=== PATIENT | male | born 1950 | race Caucasian/White ===

== ENCOUNTER → 2019-03-08 09:58 | Outpatient (CLI) | payer MEDICARE, OTHER, SELFPAY ==
[2019-03-08 10:47] LABS: 585 Gram Check PASS; Amount Collected in g 585 GRAM; Dizziness NO; Postdiastolic BP 75; Postsystolic BP 130; Prediastolic 77; Presystolic 153; Pulse 71; Site of phlebotomy LEFT AC; Swelling NO; Therapeutic Phleb Comment NO COMMENT; Zero Check Sebra Scale PASS
[2019-03-08 10:52] LABS: Add Manual Diff / Slide Review NO; Basophils Absolute Auto 100 /uL (0-100); Basophils Percent Auto 1.1 % (0-2); Eosinophils Absolute Auto 600 /uL (0-450); Eosinophils Percent Auto 5.4 % (2-4); Hematocrit 47.9 % (41-53); Hemoglobin 16.2 g/dL (13.5-17.5); Lymphocytes Absolute Auto 2000 /uL (1100-4500); Lymphocytes Percent Auto 17.9 % (25-40); Mean Corpuscular HGB Conc 33.8 % (30-36); Mean Corpuscular Hemoglobin 30.1 PG (26-34); Mean Corpuscular Volume 89.2 fL (80-100); Monocytes Absolute Auto 300 /uL (0-900); Neutrophils Absolute Auto 8000 /uL (1500-7000); Neutrophils Percent Auto 72.6 % (50-75); Platelet Count 364 X10^3/uL (150-400); Red Blood Cell Count 5.37 X10^6/uL (4.5-5.9); Red Cell Distribution Width 17.2 % (11.6-14.8)
[2019-03-08 11:04] LABS: Alanine Aminotransferase 20 IU/L (21-72); Albumin 4.3 g/dL (3.5-5.0); Albumin Globulin Ratio 1.4 (1.0-2.8); Alkaline Phosphatase 71 U/L (38-126); Aspartate Aminotransferase 37 IU/L (17-59); BUN Creatinine Ratio 18.9 (6-22); Bilirubin Total 0.9 mg/dL (0.2-1.3); Blood Urea Nitrogen 17 mg/dL (9-20); Calcium 9.4 mg/dL (8.4-10.2); Carbon Dioxide 25 mmol/L (22-32); Chloride 102 mmol/L (98-107); Estimated Glomerular Filt Rate > 60.0 mL/min (>60); Globulin 3.1 g/dL (1.7-4.1); Glucose 103 mg/dL (80-110); Lactate Dehydrogenase 684 U/L (313-618); Potassium 4.5 mmol/L (3.4-5.1); Sodium 138 mmol/L (137-145); Total Protein 7.4 g/dL (6.3-8.2); Uric Acid 8.1 mg/dL (3.5-8.5)
[2019-03-08 11:06] LABS: HEMOLYSIS 51 (0-50)
== END ==
PROVIDERS: Family Provider Family Medicine; PCP Family Medicine; Visit Provider Internal Medicine
DX: D45 Polycythemia vera (principal)
CPT/HCPCS: 80053; 83615; 84550; 85025; 99195

== ENCOUNTER → 2019-03-29 09:58 | Outpatient (CLI) | payer MEDICARE, OTHER, SELFPAY ==
[2019-03-29 10:28] LABS: Add Manual Diff / Slide Review NO; Basophils Absolute Auto 100 /uL (0-100); Basophils Percent Auto 0.8 % (0-2); Eosinophils Absolute Auto 600 /uL (0-450); Eosinophils Percent Auto 5.3 % (2-4); Hemoglobin 16.6 g/dL (13.5-17.5); Lymphocytes Absolute Auto 1900 /uL (1100-4500); Lymphocytes Percent Auto 18.1 % (25-40); Mean Corpuscular HGB Conc 33.2 % (30-36); Mean Corpuscular Hemoglobin 29.6 PG (26-34); Mean Corpuscular Volume 89.2 fL (80-100); Monocytes Absolute Auto 300 /uL (0-900); Neutrophils Absolute Auto 7700 /uL (1500-7000); Neutrophils Percent Auto 72.8 % (50-75); Platelet Count 306 X10^3/uL (150-400); Red Blood Cell Count 5.61 X10^6/uL (4.5-5.9); Red Cell Distribution Width 16.5 % (11.6-14.8); White Blood Cell Count 10.6 X10^3/uL (4.5-11.0)
[2019-03-29 11:05] LABS: 585 Gram Check PASS; Prediastolic 81; Presystolic 159; Pulse 60; Zero Check Sebra Scale PASS
[2019-03-29 11:06] LABS: Dizziness NO; Postdiastolic BP 81; Postsystolic BP 141; Site of phlebotomy RAC; Swelling NO; Therapeutic Phleb Comment NO COMMENT
[2019-03-29 11:41] LABS: Alanine Aminotransferase 19 IU/L (21-72); Albumin 4.4 g/dL (3.5-5.0); Albumin Globulin Ratio 1.5 (1.0-2.8); Alkaline Phosphatase 82 U/L (38-126); Aspartate Aminotransferase 28 IU/L (17-59); BUN Creatinine Ratio 18.9 (6-22); Bilirubin Total 0.6 mg/dL (0.2-1.3); Blood Urea Nitrogen 17 mg/dL (9-20); Calcium 9.5 mg/dL (8.4-10.2); Carbon Dioxide 28 mmol/L (22-32); Chloride 101 mmol/L (98-107); Estimated Glomerular Filt Rate > 60.0 mL/min (>60); Globulin 2.9 g/dL (1.7-4.1); Glucose 93 mg/dL (80-110); HEMOLYSIS 21 (0-50); Lactate Dehydrogenase 557 U/L (313-618); Potassium 4.2 mmol/L (3.4-5.1); Sodium 138 mmol/L (137-145); Total Protein 7.3 g/dL (6.3-8.2); Uric Acid 7.6 mg/dL (3.5-8.5)
[2019-03-29 12:34] LABS: Add Manual Diff / Slide Review NO; Basophils Absolute Auto 100 /uL (0-100); Basophils Percent Auto 1.3 % (0-2); Eosinophils Absolute Auto 500 /uL (0-450); Hematocrit 47.6 % (41-53); Hemoglobin 15.7 g/dL (13.5-17.5); Lymphocytes Absolute Auto 2100 /uL (1100-4500); Lymphocytes Percent Auto 19.2 % (25-40); Mean Corpuscular Hemoglobin 29.4 PG (26-34); Mean Corpuscular Volume 89.2 fL (80-100); Monocytes Absolute Auto 400 /uL (0-900); Monocytes Percent Auto 3.7 % (3-14); Neutrophils Absolute Auto 7600 /uL (1500-7000); Neutrophils Percent Auto 70.8 % (50-75); Platelet Count 302 X10^3/uL (150-400); Red Blood Cell Count 5.33 X10^6/uL (4.5-5.9); Red Cell Distribution Width 16.3 % (11.6-14.8); White Blood Cell Count 10.7 X10^3/uL (4.5-11.0)
== END ==
PROVIDERS: Family Provider Family Medicine; PCP Family Medicine; Visit Provider Pathology Hematology
DX: D45 Polycythemia vera (principal)
CPT/HCPCS: 80053; 83615; 84550; 85025; 99195

== ENCOUNTER → 2019-04-06 11:56 | Outpatient (CLI) | payer MEDICARE, OTHER, SELFPAY ==
[2019-04-06 12:14] LABS: Hematocrit 44.2 % (41-53); Hemoglobin 14.7 g/dL (13.5-17.5)
== END ==
PROVIDERS: Family Provider Family Medicine; PCP Family Medicine; Visit Provider Internal Medicine
DX: D45 Polycythemia vera (principal)
CPT/HCPCS: 36415; 85014; 85018

== ENCOUNTER → 2019-04-20 12:05 | Outpatient (CLI) | payer MEDICARE, OTHER, SELFPAY ==
[2019-04-20 12:44] LABS: 585 Gram Check PASS; Amount Collected in g 585 GRAM; Dizziness NO; Postdiastolic BP 77; Postsystolic BP 136; Prediastolic 80; Presystolic 130; Pulse 70; Site of phlebotomy LAC; Swelling NO; Therapeutic Phleb Comment NO COMMENT; Zero Check Sebra Scale PASS
[2019-04-20 13:48] LABS: Add Manual Diff / Slide Review NO; Basophils Absolute Auto 100 /uL (0-100); Basophils Percent Auto 1.1 % (0-2); Eosinophils Absolute Auto 600 /uL (0-450); Eosinophils Percent Auto 4.7 % (2-4); Hematocrit 44.7 % (41-53); Hemoglobin 14.8 g/dL (13.5-17.5); Lymphocytes Absolute Auto 2500 /uL (1100-4500); Mean Corpuscular HGB Conc 33.1 % (30-36); Mean Corpuscular Hemoglobin 28.6 PG (26-34); Mean Corpuscular Volume 86.6 fL (80-100); Monocytes Absolute Auto 400 /uL (0-900); Monocytes Percent Auto 3.1 % (3-14); Neutrophils Absolute Auto 9000 /uL (1500-7000); Neutrophils Percent Auto 71.1 % (50-75); Platelet Count 448 X10^3/uL (150-400); Red Blood Cell Count 5.17 X10^6/uL (4.5-5.9); White Blood Cell Count 12.6 X10^3/uL (4.5-11.0)
[2019-04-20 14:52] LABS: Uric Acid 7.8 mg/dL (3.5-8.5)
== END ==
PROVIDERS: Family Provider Family Medicine; PCP Family Medicine; Visit Provider Internal Medicine
DX: D45 Polycythemia vera (principal)
CPT/HCPCS: 84550; 85025; 99195

== ENCOUNTER → 2019-05-17 11:48 | Outpatient (CLI) | payer MEDICARE, OTHER, SELFPAY ==
[2019-05-17 12:09] LABS: Add Manual Diff / Slide Review NO; Basophils Absolute Auto 100 /uL (0-100); Basophils Percent Auto 1.1 % (0-2); Eosinophils Absolute Auto 500 /uL (0-450); Eosinophils Percent Auto 3.6 % (2-4); Hematocrit 45.6 % (41-53); Hemoglobin 14.8 g/dL (13.5-17.5); Lymphocytes Absolute Auto 2000 /uL (1100-4500); Lymphocytes Percent Auto 15.7 % (25-40); Mean Corpuscular HGB Conc 32.5 % (30-36); Mean Corpuscular Hemoglobin 27.1 PG (26-34); Mean Corpuscular Volume 83.5 fL (80-100); Monocytes Absolute Auto 400 /uL (0-900); Monocytes Percent Auto 2.8 % (3-14); Neutrophils Absolute Auto 9900 /uL (1500-7000); Neutrophils Percent Auto 76.8 % (50-75); Platelet Count 356 X10^3/uL (150-400); Red Blood Cell Count 5.47 X10^6/uL (4.5-5.9); Red Cell Distribution Width 16.1 % (11.6-14.8)
== END ==
PROVIDERS: PCP Family Medicine; Visit Provider Internal Medicine
DX: D45 Polycythemia vera (principal)
CPT/HCPCS: 36415; 85025

== ENCOUNTER → 2019-06-14 09:21 | Outpatient (CLI) | payer MEDICARE, OTHER, SELFPAY ==
[2019-06-14 10:47] LABS: 585 Gram Check PASS; Dizziness NO; Postdiastolic BP 80; Postsystolic BP 139; Prediastolic 76; Presystolic 142; Pulse 66; Site of phlebotomy LAC; Swelling NO; Therapeutic Phleb Comment NO COMMENT; Zero Check Sebra Scale PASS
== END ==
PROVIDERS: PCP Family Medicine; Visit Provider Internal Medicine
DX: D45 Polycythemia vera (principal)
CPT/HCPCS: 99195

== ENCOUNTER → 2019-06-30 09:13 | Outpatient (CLI) | payer MEDICARE, OTHER, SELFPAY ==
[2019-06-30 09:32] LABS: Add Manual Diff / Slide Review NO; Basophils Absolute Auto 200 /uL (0-100); Basophils Percent Auto 1.5 % (0-2); Eosinophils Absolute Auto 800 /uL (0-450); Eosinophils Percent Auto 5.8 % (2-4); Hematocrit 46.6 % (41-53); Hemoglobin 14.9 g/dL (13.5-17.5); Lymphocytes Absolute Auto 2200 /uL (1100-4500); Lymphocytes Percent Auto 16.8 % (25-40); Mean Corpuscular HGB Conc 32.1 % (30-36); Mean Corpuscular Volume 77.9 fL (80-100); Monocytes Absolute Auto 700 /uL (0-900); Monocytes Percent Auto 5.1 % (3-14); Neutrophils Absolute Auto 9400 /uL (1500-7000); Neutrophils Percent Auto 70.8 % (50-75); Platelet Count 481 X10^3/uL (150-400); Red Blood Cell Count 5.98 X10^6/uL (4.5-5.9); Red Cell Distribution Width 16.5 % (11.6-14.8); White Blood Cell Count 13.3 X10^3/uL (4.5-11.0)
[2019-06-30 10:31] LABS: 585 Gram Check PASS; Zero Check Sebra Scale PASS
[2019-06-30 10:32] LABS: Dizziness NO; Postdiastolic BP 59; Postsystolic BP 141; Prediastolic 87; Presystolic 154; Pulse 59; Site of phlebotomy LAC; Swelling NO; Therapeutic Phleb Comment NO COMMENT
[2019-06-30 11:06] LABS: Add Manual Diff / Slide Review NO; Basophils Absolute Auto 100 /uL (0-100); Basophils Percent Auto 1.1 % (0-2); Eosinophils Absolute Auto 700 /uL (0-450); Eosinophils Percent Auto 5.8 % (2-4); Hematocrit 45.3 % (41-53); Hemoglobin 14.7 g/dL (13.5-17.5); Lymphocytes Absolute Auto 2100 /uL (1100-4500); Mean Corpuscular HGB Conc 32.4 % (30-36); Mean Corpuscular Hemoglobin 25.3 PG (26-34); Mean Corpuscular Volume 77.9 fL (80-100); Monocytes Absolute Auto 400 /uL (0-900); Monocytes Percent Auto 3.2 % (3-14); Neutrophils Absolute Auto 9000 /uL (1500-7000); Neutrophils Percent Auto 72.9 % (50-75); Platelet Count 483 X10^3/uL (150-400); Red Blood Cell Count 5.81 X10^6/uL (4.5-5.9); Red Cell Distribution Width 16.3 % (11.6-14.8); White Blood Cell Count 12.3 X10^3/uL (4.5-11.0)
== END ==
PROVIDERS: PCP Family Medicine; Visit Provider Pathology Hematology
DX: D45 Polycythemia vera (principal)
CPT/HCPCS: 36415; 85025; 99195

== ENCOUNTER → 2019-09-26 09:12 | Outpatient (CLI) | payer MEDICARE, OTHER, SELFPAY ==
[2019-09-26 09:52] LABS: Add Manual Diff / Slide Review NO; Basophils Absolute Auto 100 /uL (0-100); Basophils Percent Auto 0.9 % (0-2); Eosinophils Absolute Auto 800 /uL (0-450); Eosinophils Percent Auto 6.1 % (2-4); Hematocrit 45.6 % (41-53); Hemoglobin 14.4 g/dL (13.5-17.5); Lymphocytes Absolute Auto 2100 /uL (1100-4500); Lymphocytes Percent Auto 16.1 % (25-40); Mean Corpuscular HGB Conc 31.5 % (30-36); Mean Corpuscular Hemoglobin 21.9 PG (26-34); Monocytes Absolute Auto 500 /uL (0-900); Monocytes Percent Auto 3.6 % (3-14); Neutrophils Absolute Auto 9700 /uL (1500-7000); Neutrophils Percent Auto 73.3 % (50-75); Platelet Count 456 X10^3/uL (150-400); Red Cell Distribution Width 18.4 % (11.6-14.8); White Blood Cell Count 13.2 X10^3/uL (4.5-11.0)
[2019-09-26 09:53] LABS: Mean Corpuscular Volume 69.7 fL (80-100); Red Blood Cell Count 6.55 X10^6/uL (4.5-5.9)
[2019-09-26 10:23] LABS: Microcytosis 1+
[2019-09-26 10:38] LABS: 585 Gram Check PASS; Prediastolic 73; Presystolic 138; Pulse 62; Zero Check Sebra Scale PASS
[2019-09-26 10:39] LABS: Amount Collected in g 585; Dizziness NO; Postdiastolic BP 85; Postsystolic BP 149; Site of phlebotomy LAC; Swelling NO; Therapeutic Phleb Comment NO COMMENT
== END ==
PROVIDERS: PCP Family Medicine; Visit Provider Pathology Hematology
DX: D45 Polycythemia vera (principal)
CPT/HCPCS: 36415; 85025; 99195

== ENCOUNTER → 2019-10-27 09:45 | Outpatient (CLI) | payer MEDICARE, OTHER, SELFPAY ==
[2019-10-27 10:02] LABS: 585 Gram Check PASS; Zero Check Sebra Scale PASS
[2019-10-27 10:31] LABS: Prediastolic 73; Presystolic 151; Pulse 66; Site of phlebotomy LAC
[2019-10-27 10:32] LABS: Dizziness NO; Postdiastolic BP 75; Postsystolic BP 139; Swelling NO; Therapeutic Phleb Comment NO COMMENT
== END ==
PROVIDERS: PCP Family Medicine; Visit Provider Internal Medicine
DX: D45 Polycythemia vera (principal)
CPT/HCPCS: 99195

== ENCOUNTER → 2020-01-12 11:20 | Outpatient (CLI) | payer MEDICARE, OTHER, SELFPAY ==
[2020-01-12 12:01] LABS: 585 Gram Check PASS; Prediastolic 74; Presystolic 150; Pulse 72; Site of phlebotomy RAC; Zero Check Sebra Scale PASS
[2020-01-12 12:02] LABS: Dizziness NO; Postdiastolic BP 72; Postsystolic BP 141; Swelling NO; Therapeutic Phleb Comment NO COMMENT
== END ==
PROVIDERS: PCP Family Medicine; Referring Provider Pathology Hematology; Visit Provider Pathology Hematology
DX: D45 Polycythemia vera (principal)
CPT/HCPCS: 99195

== ENCOUNTER → 2020-04-11 09:33 | Outpatient (CLI) | payer MEDICARE, OTHER, SELFPAY ==
[2020-04-11 10:31] LABS: 585 Gram Check PASS; Pulse 68; Zero Check Sebra Scale PASS
[2020-04-11 10:32] LABS: Dizziness NO; Postdiastolic BP 89; Postsystolic BP 151; Prediastolic 84; Presystolic 158; Site of phlebotomy LAC; Swelling NO; Therapeutic Phleb Comment NO COMMENT
== END ==
PROVIDERS: PCP Family Medicine; Referring Provider Pathology Hematology; Visit Provider Pathology Hematology
DX: D45 Polycythemia vera (principal)
CPT/HCPCS: 99195

== ENCOUNTER → 2020-05-22 09:23 | Outpatient (CLI) | payer MEDICARE, OTHER, SELFPAY ==
[2020-05-22 10:50] LABS: 585 Gram Check PASS; Amount Collected in g 466g; Dizziness NO; Postdiastolic BP 80; Postsystolic BP 149; Prediastolic 81; Presystolic 170; Pulse 63; Site of phlebotomy LAC; Swelling NO; Therapeutic Phleb Comment NO COMMENT; Zero Check Sebra Scale PASS
== END ==
PROVIDERS: PCP Family Medicine; Referring Provider Pathology Hematology; Visit Provider Pathology Hematology
DX: D45 Polycythemia vera (principal)
CPT/HCPCS: 99195

== ENCOUNTER → 2020-06-20 09:30 | Outpatient (CLI) | payer MEDICARE, OTHER, SELFPAY ==
[2020-06-20 10:28] LABS: 585 Gram Check PASS; Dizziness NO; Postdiastolic BP 86; Postsystolic BP 149; Prediastolic 73; Presystolic 164; Pulse 46; Site of phlebotomy RAC; Swelling NO; Therapeutic Phleb Comment NO COMMENT; Zero Check Sebra Scale PASS
== END ==
PROVIDERS: PCP Family Medicine; Referring Provider Pathology Hematology; Visit Provider Pathology Hematology
DX: D45 Polycythemia vera (principal)
CPT/HCPCS: 99195

== ENCOUNTER 2020-07-09 18:54 | Emergency (ER) | payer MEDICARE, OTHER, SELFPAY ==
[2020-07-09 18:59] VITALS: BP 163/77; PULSE 59; RESP 16; TEMP 36.4; O2SAT 98
--- NOTE | 2020-07-09 19:03 | DI.US.S_ITS ---
PROCEDURE: US PERIPH VENOUS LOW EXTREM RT INDICATIONS: rt calf pain/swelling TECHNIQUE: Real-time imaging, as well as color and pulse Doppler interrogation, were performed of the lower extremity deep veins from the inguinal ligament to the popliteal fossa. COMPARISON: None. FINDINGS: The common femoral, femoral and popliteal veins are normally compressible, and free of intraluminal thrombus. Color and pulse Doppler demonstrate normal phasic intraluminal flow. There is normal augmentation response to distal compression maneuver. There is occlusive thrombosis of the lesser saphenous vein extending to the junction to the popliteal vein. No filling defect in the popliteal vein. IMPRESSION: 1. No DVT in the right lower extremity. 2. Occlusive thrombosis of the lesser saphenous vein extending to the junction to popliteal vein. Dictated by: Mary Madsen M.D. on 07/09/2020 at 20:09 Approved by: Mary Madsen M.D. on 07/09/2020 at 20:11
[2020-07-09 20:05] VITALS: BP 189/90; PULSE 52; RESP 14; O2SAT 100
[2020-07-09 20:56] LABS: Add Manual Diff / Slide Review NO; Basophils Absolute Auto 100 /uL (0-100); Eosinophils Absolute Auto 900 /uL (0-450); Eosinophils Percent Auto 6.8 % (2-4); Hematocrit 38.7 % (41-53); Hemoglobin 12.1 g/dL (13.5-17.5); Lymphocytes Absolute Auto 2600 /uL (1100-4500); Lymphocytes Percent Auto 18.7 % (25-40); Mean Corpuscular HGB Conc 31.2 % (30-36); Mean Corpuscular Hemoglobin 20.6 PG (26-34); Mean Corpuscular Volume 66.1 fL (80-100); Monocytes Absolute Auto 600 /uL (0-900); Monocytes Percent Auto 4.4 % (3-14); Neutrophils Absolute Auto 9500 /uL (1500-7000); Neutrophils Percent Auto 69.1 % (50-75); Platelet Count 450 X10^3/uL (150-400); Red Blood Cell Count 5.85 X10^6/uL (4.5-5.9); White Blood Cell Count 13.7 X10^3/uL (4.5-11.0)
[2020-07-09 21:21] LABS: Microcytosis 1+
[2020-07-09 21:23] VITALS: BP 177/86; PULSE 54; RESP 18; O2SAT 97
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
== END 2020-07-09 21:23 | disposition home or self-care (01) ==
PROVIDERS: Emergency Provider Nurse Practitioner Family; PCP Family Medicine
DX: I82.811 Embolism and thrombosis of superficial veins of right lower extremity (principal); D64.9 Anemia, unspecified
CPT/HCPCS: 36415; 85025; 93971; 99283; 99284

== ENCOUNTER → 2020-08-29 09:06 | Outpatient (CLI) | payer MEDICARE, OTHER, SELFPAY ==
[2020-08-29 12:27] LABS: 585 Gram Check PASS; Dizziness NO; Postdiastolic BP 86; Postsystolic BP 157; Prediastolic 81; Presystolic 158; Pulse 78; Site of phlebotomy LAC; Swelling NO; Therapeutic Phleb Comment NO COMMENT; Zero Check Sebra Scale PASS
== END ==
PROVIDERS: PCP Family Medicine; Referring Provider Pathology Hematology; Visit Provider Pathology Hematology
DX: D45 Polycythemia vera (principal)
CPT/HCPCS: 99195

== ENCOUNTER → 2020-10-01 09:44 | Outpatient (CLI) | payer MEDICARE, OTHER, SELFPAY ==
[2020-10-01 10:44] LABS: Add Manual Diff / Slide Review NO; Basophils Absolute Auto 100 /uL (0-100); Basophils Percent Auto 0.9 % (0-2); Eosinophils Absolute Auto 1000 /uL (0-450); Hematocrit 41.9 % (41-53); Hemoglobin 12.8 g/dL (13.5-17.5); Lymphocytes Absolute Auto 2000 /uL (1100-4500); Lymphocytes Percent Auto 12.5 % (25-40); Mean Corpuscular HGB Conc 30.5 % (30-36); Mean Corpuscular Hemoglobin 19.8 PG (26-34); Mean Corpuscular Volume 64.9 fL (80-100); Monocytes Absolute Auto 500 /uL (0-900); Monocytes Percent Auto 2.9 % (3-14); Neutrophils Absolute Auto 12700 /uL (1500-7000); Neutrophils Percent Auto 77.7 % (50-75); Platelet Count 515 X10^3/uL (150-400); Red Blood Cell Count 6.46 X10^6/uL (4.5-5.9); Red Cell Distribution Width 19.8 % (11.6-14.8); White Blood Cell Count 16.4 X10^3/uL (4.5-11.0)
[2020-10-01 12:05] LABS: Anisocytosis 2+; Microcytosis 1+
[2020-10-01 12:06] LABS: Hypochromasia 1+
[2020-10-01 12:07] LABS: Ovalocytes 1+; Poikilocytosis 1+
== END ==
PROVIDERS: PCP Family Medicine; Referring Provider Pathology Hematology; Visit Provider Pathology Hematology
DX: D45 Polycythemia vera (principal)
CPT/HCPCS: 36415; 85025

== ENCOUNTER → 2020-10-01 09:47 | Outpatient (CLI) | payer MEDICARE, OTHER, SELFPAY ==
--- NOTE | 2020-10-01 | DI.US.S_ITS ---
PROCEDURE: US PERIP VENOUS LOW EXTREM RT INDICATIONS: Phlebitis and thrombophlebitis of superficial vess TECHNIQUE: Real-time imaging, as well as color and pulse Doppler interrogation, were performed of the lower extremity deep veins from the inguinal ligament to the popliteal fossa. COMPARISON: [facility], , [facility] VENOUS LOW EXTREM RT, 07/09/2020, 19:38. FINDINGS: The common femoral, femoral and popliteal veins are normally compressible, and free of intraluminal thrombus. Color and pulse Doppler demonstrate normal phasic intraluminal flow. There is normal augmentation response to distal compression maneuver. There is occlusive thrombosis of the right lesser saphenous vein as seen on the last exam. IMPRESSION: 1. No DVT in the right lower extremity. 2. Occlusive thrombosis of the lesser saphenous vein. Dictated by: Mary Madsen M.D. on 10/01/2020 at 11:07 Approved by: Mary Madsen M.D. on 10/01/2020 at 11:09
== END ==
PROVIDERS: PCP Family Medicine; Referring Provider Family Medicine; Visit Provider Family Medicine
DX: I82.811 Embolism and thrombosis of superficial veins of right lower extremity (principal); D45 Polycythemia vera
CPT/HCPCS: 36415; 85025; 93971

== ENCOUNTER → 2020-10-30 09:31 | Outpatient (CLI) | payer MEDICARE, OTHER, SELFPAY ==
[2020-10-31 06:11] LABS: 585 Gram Check PASS; Dizziness NO; Postdiastolic BP 73; Postsystolic BP 146; Prediastolic 77; Presystolic 137; Pulse 62; Site of phlebotomy LAC; Swelling NO; Therapeutic Phleb Comment NO COMMENT; Zero Check Sebra Scale PASS
== END ==
PROVIDERS: PCP Family Medicine; Referring Provider Pathology Hematology; Visit Provider Pathology Hematology
DX: D45 Polycythemia vera (principal)
CPT/HCPCS: 99195

== ENCOUNTER → 2020-12-25 09:13 | Outpatient (CLI) | payer MEDICARE, OTHER, SELFPAY ==
[2020-12-25 10:07] LABS: 585 Gram Check PASS; Dizziness NO; Postdiastolic BP 81; Postsystolic BP 154; Prediastolic 86; Presystolic 156; Pulse 51; Site of phlebotomy RAC; Swelling NO; Therapeutic Phleb Comment NO COMMENT; Zero Check Sebra Scale PASS
== END ==
PROVIDERS: PCP Family Medicine; Referring Provider Pathology Hematology; Visit Provider Pathology Hematology
DX: D45 Polycythemia vera (principal)
CPT/HCPCS: 99195

== ENCOUNTER → 2021-02-20 09:13 | Outpatient (CLI) | payer MEDICARE, OTHER, SELFPAY ==
[2021-02-20 09:43] LABS: Add Manual Diff / Slide Review NO; Basophils Absolute Auto 100 /uL (0-100); Basophils Percent Auto 0.7 % (0-2); Eosinophils Absolute Auto 1000 /uL (0-450); Eosinophils Percent Auto 6.5 % (2-4); Hematocrit 41.3 % (41-53); Hemoglobin 12.6 g/dL (13.5-17.5); Lymphocytes Absolute Auto 2000 /uL (1100-4500); Lymphocytes Percent Auto 12.4 % (25-40); Mean Corpuscular HGB Conc 30.5 % (30-36); Mean Corpuscular Hemoglobin 19.9 PG (26-34); Mean Corpuscular Volume 65.2 fL (80-100); Monocytes Absolute Auto 700 /uL (0-900); Monocytes Percent Auto 4.2 % (3-14); Neutrophils Absolute Auto 12200 /uL (1500-7000); Neutrophils Percent Auto 76.2 % (50-75); Platelet Count 503 X10^3/uL (150-400); Red Blood Cell Count 6.34 X10^6/uL (4.5-5.9); Red Cell Distribution Width 20.2 % (11.6-14.8)
[2021-02-20 10:14] LABS: Anisocytosis 2+; Hypochromasia 1+; Microcytosis 2+; Polychromasia 1+
== END ==
PROVIDERS: PCP Family Medicine; Referring Provider Pathology Hematology; Visit Provider Pathology Hematology
DX: D45 Polycythemia vera (principal)
CPT/HCPCS: 36415; 85025

== ENCOUNTER → 2021-04-17 09:23 | Outpatient (CLI) | payer MEDICARE, OTHER, SELFPAY ==
[2021-04-17 09:57] LABS: Add Manual Diff / Slide Review NO; Basophils Absolute Auto 100 /uL (0-100); Basophils Percent Auto 0.8 % (0-2); Eosinophils Absolute Auto 800 /uL (0-450); Eosinophils Percent Auto 4.8 % (2-4); Hematocrit 45.1 % (41-53); Hemoglobin 13.9 g/dL (13.5-17.5); Lymphocytes Absolute Auto 1800 /uL (1100-4500); Lymphocytes Percent Auto 10.6 % (25-40); Mean Corpuscular HGB Conc 30.9 % (30-36); Mean Corpuscular Hemoglobin 20.5 PG (26-34); Mean Corpuscular Volume 66.2 fL (80-100); Monocytes Absolute Auto 700 /uL (0-900); Monocytes Percent Auto 4.2 % (3-14); Neutrophils Absolute Auto 13600 /uL (1500-7000); Neutrophils Percent Auto 79.6 % (50-75); Platelet Count 490 X10^3/uL (150-400); Red Blood Cell Count 6.82 X10^6/uL (4.5-5.9); Red Cell Distribution Width 20.9 % (11.6-14.8); White Blood Cell Count 17.1 X10^3/uL (4.5-11.0)
[2021-04-17 10:23] LABS: Hypochromasia 2+; Microcytosis 3+; Target Cells 1+
[2021-04-17 10:45] LABS: 585 Gram Check PASS; Dizziness NO; Postdiastolic BP 78; Postsystolic BP 139; Prediastolic 88; Presystolic 153; Pulse 62; Site of phlebotomy LAC; Swelling NO; Temperature 97.7; Therapeutic Phleb Comment NO COMMENT; Zero Check Sebra Scale PASS
== END ==
PROVIDERS: PCP Family Medicine; Referring Provider Pathology Hematology; Visit Provider Pathology Hematology
DX: D45 Polycythemia vera (principal)
CPT/HCPCS: 36415; 85025; 99195

== ENCOUNTER → 2021-05-07 12:09 | Outpatient (CLI) | payer MEDICARE, OTHER, SELFPAY ==
[2021-05-07 19:37] LABS: Hemoglobin 12.7 g/dL (13.5-17.5); Mean Corpuscular HGB Conc 30.3 % (30-36); Mean Corpuscular Hemoglobin 20.3 PG (26-34); Mean Corpuscular Volume 66.8 fL (80-100); Platelet Count 443 X10^3/uL (150-400); Red Blood Cell Count 6.28 X10^6/uL (4.5-5.9); Red Cell Distribution Width 20.6 % (11.6-14.8); White Blood Cell Count 17.8 X10^3/uL (4.5-11.0)
[2021-05-07 19:39] LABS: Add Manual Diff / Slide Review YES
[2021-05-07 20:03] LABS: Neutrophils Absolute Manual 15664 /uL (3000-5900); Total Cells Counted 100
[2021-05-07 20:04] LABS: Anisocytosis 2+; Hypochromasia 2+; Poikilocytosis 2+
[2021-05-07 20:05] LABS: Smudge Cells 1+
== END ==
PROVIDERS: PCP Family Medicine; Visit Provider Pathology Hematology
DX: R42 Dizziness and giddiness (principal)
CPT/HCPCS: 85007; 85025

== ENCOUNTER → 2021-06-18 12:08 | Outpatient (CLI) | payer MEDICARE, OTHER, SELFPAY ==
[2021-06-18 20:02] LABS: Add Manual Diff / Slide Review NO; Basophils Absolute Auto 0 /uL (0-100); Basophils Percent Auto 0.2 % (0-2); Eosinophils Absolute Auto 600 /uL (0-450); Eosinophils Percent Auto 4.2 % (2-4); Hematocrit 46.3 % (41-53); Hemoglobin 13.8 g/dL (13.5-17.5); Lymphocytes Absolute Auto 1600 /uL (1100-4500); Lymphocytes Percent Auto 10.3 % (25-40); Mean Corpuscular HGB Conc 29.7 % (30-36); Mean Corpuscular Hemoglobin 20.3 PG (26-34); Mean Corpuscular Volume 68.4 fL (80-100); Monocytes Absolute Auto 600 /uL (0-900); Monocytes Percent Auto 3.9 % (3-14); Neutrophils Absolute Auto 12300 /uL (1500-7000); Neutrophils Percent Auto 81.4 % (50-75); Platelet Count 487 X10^3/uL (150-400); Red Blood Cell Count 6.77 X10^6/uL (4.5-5.9); White Blood Cell Count 15.1 X10^3/uL (4.5-11.0)
[2021-06-18 20:39] LABS: Microcytosis 1+; Platelet Estimate Increased on smear
== END ==
PROVIDERS: Internal Medicine Medical Oncology; PCP Family Medicine
DX: D45 Polycythemia vera (principal)
CPT/HCPCS: 85025

== ENCOUNTER → 2021-06-25 10:31 | Outpatient (CLI) | payer MEDICARE, OTHER, SELFPAY ==
[2021-06-25 12:08] LABS: 585 Gram Check PASS; Dizziness NO; Postdiastolic BP 76; Postsystolic BP 145; Prediastolic 73; Presystolic 148; Pulse 55; Site of phlebotomy RAC; Swelling NO; Temperature 97.9; Therapeutic Phleb Comment NO COMMENT; Zero Check Sebra Scale PASS
== END ==
PROVIDERS: PCP Family Medicine; Referring Provider Pathology Hematology; Visit Provider Pathology Hematology
DX: D45 Polycythemia vera (principal)
CPT/HCPCS: 99195

== ENCOUNTER → 2021-10-02 09:26 | Outpatient (CLI) | payer MEDICARE, OTHER, SELFPAY ==
[2021-10-02 09:54] LABS: Add Manual Diff / Slide Review NO; Basophils Absolute Auto 200 /uL (0-100); Basophils Percent Auto 1.1 % (0-2); Eosinophils Absolute Auto 900 /uL (0-450); Eosinophils Percent Auto 5.1 % (2-4); Lymphocytes Absolute Auto 2100 /uL (1100-4500); Lymphocytes Percent Auto 12.4 % (25-40); Mean Corpuscular HGB Conc 30.5 % (30-36); Mean Corpuscular Hemoglobin 20.3 PG (26-34); Mean Corpuscular Volume 66.7 fL (80-100); Monocytes Absolute Auto 600 /uL (0-900); Monocytes Percent Auto 3.6 % (3-14); Neutrophils Absolute Auto 13200 /uL (1500-7000); Neutrophils Percent Auto 77.8 % (50-75); Platelet Count 576 X10^3/uL (150-400); Red Cell Distribution Width 20.1 % (11.6-14.8); White Blood Cell Count 16.9 X10^3/uL (4.5-11.0)
[2021-10-02 10:21] LABS: Microcytosis 1+
[2021-10-02 10:22] LABS: Anisocytosis 2+; Hypochromasia 1+
[2021-10-02 10:23] LABS: Poikilocytosis 1+
[2021-10-02 10:37] LABS: 585 Gram Check PASS; Dizziness NO; Postdiastolic BP 87; Postsystolic BP 148; Prediastolic 84; Presystolic 165; Pulse 70; Site of phlebotomy LAC; Swelling NO; Temperature 97.9; Therapeutic Phleb Comment NO COMMENT; Zero Check Sebra Scale PASS
[2021-10-02 12:49] LABS: Amount Collected in g 569g
== END ==
PROVIDERS: PCP Family Medicine; Referring Provider Pathology Hematology; Visit Provider Pathology Hematology
DX: D45 Polycythemia vera (principal)
CPT/HCPCS: 36415; 85025; 99195

== ENCOUNTER → 2022-01-08 09:08 | Outpatient (CLI) | payer MEDICARE, OTHER, SELFPAY ==
[2022-01-08 10:06] LABS: Add Manual Diff / Slide Review NO; Basophils Absolute Auto 100 /uL (0-100); Basophils Percent Auto 0.3 % (0-2); Eosinophils Absolute Auto 1000 /uL (0-450); Eosinophils Percent Auto 6.6 % (2-4); Hematocrit 44.7 % (41-53); Hemoglobin 13.9 g/dL (13.5-17.5); Lymphocytes Absolute Auto 2000 /uL (1100-4500); Lymphocytes Percent Auto 12.8 % (25-40); Mean Corpuscular HGB Conc 31.2 % (30-36); Mean Corpuscular Hemoglobin 20.6 PG (26-34); Monocytes Absolute Auto 700 /uL (0-900); Monocytes Percent Auto 4.6 % (3-14); Neutrophils Absolute Auto 11800 /uL (1500-7000); Neutrophils Percent Auto 75.7 % (50-75); Platelet Count 516 X10^3/uL (150-400); Red Blood Cell Count 6.77 X10^6/uL (4.5-5.9); Red Cell Distribution Width 19.8 % (11.6-14.8); White Blood Cell Count 15.6 X10^3/uL (4.5-11.0)
[2022-01-08 10:31] LABS: Microcytosis 2+; Poikilocytosis 1+
== END ==
PROVIDERS: PCP Family Medicine; Referring Provider Pathology Hematology; Visit Provider Pathology Hematology
DX: D45 Polycythemia vera (principal)
CPT/HCPCS: 36415; 85025

== ENCOUNTER → 2022-02-12 09:00 | Outpatient (CLI) | payer MEDICARE, OTHER, SELFPAY ==
[2022-02-12 09:30] LABS: Add Manual Diff / Slide Review NO; Basophils Absolute Auto 100 /uL (0-100); Basophils Percent Auto 0.4 % (0-2); Eosinophils Absolute Auto 1100 /uL (0-450); Eosinophils Percent Auto 6.2 % (2-4); Hematocrit 45.5 % (41-53); Hemoglobin 14.2 g/dL (13.5-17.5); Lymphocytes Absolute Auto 2000 /uL (1100-4500); Lymphocytes Percent Auto 11.8 % (25-40); Mean Corpuscular HGB Conc 31.3 % (30-36); Mean Corpuscular Hemoglobin 20.9 PG (26-34); Mean Corpuscular Volume 66.6 fL (80-100); Monocytes Absolute Auto 800 /uL (0-900); Monocytes Percent Auto 4.9 % (3-14); Neutrophils Absolute Auto 13300 /uL (1500-7000); Neutrophils Percent Auto 76.7 % (50-75); Red Blood Cell Count 6.82 X10^6/uL (4.5-5.9); Red Cell Distribution Width 20.5 % (11.6-14.8); White Blood Cell Count 17.4 X10^3/uL (4.5-11.0)
[2022-02-12 10:08] LABS: 585 Gram Check PASS; Dizziness NO; Postdiastolic BP 81; Postsystolic BP 154; Prediastolic 74; Presystolic 144; Pulse 64; Site of phlebotomy LAC; Swelling NO; Temperature 97.4; Therapeutic Phleb Comment NO COMMENT; Zero Check Sebra Scale PASS
[2022-02-12 10:10] LABS: Microcytosis 2+
[2022-02-12 10:11] LABS: Platelet Count 469 X10^3/uL (150-400)
== END ==
PROVIDERS: PCP Family Medicine; Referring Provider Pathology Hematology; Visit Provider Pathology Hematology
DX: D45 Polycythemia vera (principal)
CPT/HCPCS: 36415; 85025; 99195

== ENCOUNTER → 2022-03-19 09:40 | Outpatient (CLI) | payer MEDICARE, OTHER, SELFPAY ==
[2022-03-19 10:33] LABS: 585 Gram Check PASS; Dizziness NO; Postdiastolic BP 75; Postsystolic BP 144; Prediastolic 80; Presystolic 151; Site of phlebotomy RAC; Swelling NO; Temperature 97.6; Therapeutic Phleb Comment NO COMMENT; Zero Check Sebra Scale PASS
== END ==
PROVIDERS: PCP Family Medicine; Referring Provider Pathology Hematology; Visit Provider Pathology Hematology
DX: D45 Polycythemia vera (principal)
CPT/HCPCS: 99195

== ENCOUNTER → 2022-04-08 08:37 | Outpatient (CLI) | payer MEDICARE, OTHER, SELFPAY ==
[2022-04-08 09:04] LABS: Add Manual Diff / Slide Review NO; Basophils Absolute Auto 100 /uL (0-100); Basophils Percent Auto 0.5 % (0-2); Eosinophils Absolute Auto 1000 /uL (0-450); Eosinophils Percent Auto 5.9 % (2-4); Hemoglobin 13.7 g/dL (13.5-17.5); Lymphocytes Absolute Auto 1900 /uL (1100-4500); Lymphocytes Percent Auto 11.1 % (25-40); Mean Corpuscular HGB Conc 31.2 % (30-36); Mean Corpuscular Hemoglobin 20.8 PG (26-34); Mean Corpuscular Volume 66.7 fL (80-100); Monocytes Absolute Auto 700 /uL (0-900); Neutrophils Absolute Auto 13400 /uL (1500-7000); Neutrophils Percent Auto 78.5 % (50-75); Platelet Count 536 X10^3/uL (150-400); Red Cell Distribution Width 19.8 % (11.6-14.8); White Blood Cell Count 17.1 X10^3/uL (4.5-11.0)
[2022-04-08 09:14] LABS: Anisocytosis 2+; Hypochromasia 1+; Microcytosis 1+
== END ==
PROVIDERS: PCP Family Medicine; Referring Provider Pathology Hematology; Visit Provider Pathology Hematology
DX: D45 Polycythemia vera (principal)
CPT/HCPCS: 36415; 85025

== ENCOUNTER → 2022-04-29 10:33 | Outpatient (CLI) | payer MEDICARE, OTHER, SELFPAY ==
[2022-04-29 11:22] LABS: Add Manual Diff / Slide Review NO; Basophils Absolute Auto 100 /uL (0-100); Basophils Percent Auto 0.4 % (0-2); Eosinophils Absolute Auto 1100 /uL (0-450); Eosinophils Percent Auto 6.4 % (2-4); Hematocrit 43.4 % (41-53); Hemoglobin 13.4 g/dL (13.5-17.5); Lymphocytes Absolute Auto 2000 /uL (1100-4500); Lymphocytes Percent Auto 10.9 % (25-40); Mean Corpuscular HGB Conc 30.8 % (30-36); Mean Corpuscular Hemoglobin 20.6 PG (26-34); Mean Corpuscular Volume 67.1 fL (80-100); Monocytes Absolute Auto 600 /uL (0-900); Monocytes Percent Auto 3.5 % (3-14); Neutrophils Absolute Auto 14100 /uL (1500-7000); Neutrophils Percent Auto 78.8 % (50-75); Platelet Count 560 X10^3/uL (150-400); Red Blood Cell Count 6.47 X10^6/uL (4.5-5.9); Red Cell Distribution Width 19.3 % (11.6-14.8); White Blood Cell Count 17.9 X10^3/uL (4.5-11.0)
[2022-04-29 11:47] LABS: Hypochromasia 1+; Microcytosis 2+; Poikilocytosis 1+
== END ==
PROVIDERS: PCP Family Medicine; Referring Provider Pathology Hematology; Visit Provider Pathology Hematology
DX: D45 Polycythemia vera (principal); K40.90 Unilateral inguinal hernia, without obstruction or gangrene, not specified as recurrent
CPT/HCPCS: 36415; 85025; 99213

== ENCOUNTER → 2022-05-28 09:25 | Outpatient (CLI) | payer MEDICARE, OTHER, SELFPAY ==
[2022-05-28 10:16] LABS: Add Manual Diff / Slide Review NO; Basophils Absolute Auto 100 /uL (0-100); Basophils Percent Auto 0.3 % (0-2); Eosinophils Absolute Auto 1000 /uL (0-450); Hematocrit 44.9 % (41-53); Hemoglobin 13.8 g/dL (13.5-17.5); Lymphocytes Absolute Auto 1700 /uL (1100-4500); Lymphocytes Percent Auto 9.8 % (25-40); Mean Corpuscular HGB Conc 30.7 % (30-36); Mean Corpuscular Hemoglobin 20.5 PG (26-34); Mean Corpuscular Volume 66.6 fL (80-100); Monocytes Absolute Auto 600 /uL (0-900); Monocytes Percent Auto 3.6 % (3-14); Neutrophils Absolute Auto 13800 /uL (1500-7000); Neutrophils Percent Auto 80.3 % (50-75); Platelet Count 591 X10^3/uL (150-400); Red Blood Cell Count 6.74 X10^6/uL (4.5-5.9); Red Cell Distribution Width 19.5 % (11.6-14.8); White Blood Cell Count 17.2 X10^3/uL (4.5-11.0)
[2022-05-28 10:57] LABS: Anisocytosis 2+; Hypochromasia 1+; Poikilocytosis 1+
== END ==
PROVIDERS: PCP Family Medicine; Referring Provider Pathology Hematology; Visit Provider Pathology Hematology
DX: D45 Polycythemia vera (principal)
CPT/HCPCS: 36415; 85025

== ENCOUNTER → 2022-07-20 09:14 | Outpatient (CLI) | payer MEDICARE, OTHER, SELFPAY ==
[2022-07-20 12:40] LABS: COVID19 -Nasal RAPID Negative (Negative)
== END ==
PROVIDERS: PCP Family Medicine; Visit Provider Surgery
DX: Z20.822 Contact with and (suspected) exposure to COVID-19 (principal); Z01.812 Encounter for preprocedural laboratory examination
CPT/HCPCS: 87635; C9803

== ENCOUNTER 2022-07-21 06:39 | Day surgery (SDC) | payer MEDICARE, OTHER, SELFPAY ==
[2022-07-16 09:29] VITALS: BMI 26.9
[2022-07-21] VITALS (9 sets, daily range): BP systolic 101–138; BP diastolic 47–73; PULSE 60–66; RESP 10–18; TEMP 35.9–36.6; O2SAT 91–97; BMI 26.9
[2022-07-21] MEDS: LACTATED RINGERS 1,000 ML 84 ML IV (07:05)
--- NOTE | 2022-07-21 07:57 | PM.HP.1 ---
History of Present Illness History of Present Illness Date Patient Seen: 07/21/22 Time Patient Seen: 07:57 Chief complaint: SDC Narrative: Pat is a 71-year-old man with polycythemia vera and a left inguinal hernia who is here for an open left inguinal hernia repair. Please see the office note from April for details. Patient History Medical History (Updated 05/28/22 @ 17:12 by Rober Mukherjee MD) Cataracts, bilateral Melanoma of wrist Polycythemia vera Surgical History (Updated 07/16/22 @ 09:38 by Kristal Rosales RN) History of tonsillectomy (195) Hx of bilateral cataract extraction Hx of colonoscopy (2015) Family & Social History Family History (Updated 04/29/22 @ 10:02 by Rohan Mckinnon RN) Father Hypertension Diabetes mellitus Cancer Mother Gallstones Social History: household members spouse Tobacco & Substance use: Smoking Status Never smoker alcohol intake current alcohol intake frequency 0-2 drinks per day Substance Use Type does not use Meds Home Medications and Allergies Home Medications Medication Instructions Recorded Confirmed Type aspirin 81 mg tablet,delayed 81 mg PO DAILY 04/29/22 07/21/22 History release cholecalciferol (vitamin D3) 125 125 mcg PO DAILY 04/29/22 07/21/22 History mcg (5,000 unit) capsule omega 5-nso-xne-fish oil 60 mg-90 1 cap PO DAILY 04/29/22 07/16/22 History mg-500 mg capsule (Fish Oil) [place] Mushrooom 1 tab DAILY 05/28/22 07/21/22 History Allergies Allergy/AdvReac Type Severity Reaction Status Date / Time adhesive tape AdvReac Intermediate Verified 07/21/22 07:06 Exam Vital Signs (past 8 hours): - 07/21/22 07:10 Temperature 96.7 F L Pulse Rate 60 Respiratory Rate 18 Blood Pressure 138/72 Pulse Oximetry 96 Oxygen Delivery Method Room Air Oxygen Delivery Method Room Air Const General: healthy appearing Resp Effort & Inspection: normal respiratory effort Assessment & Plan Assessment and plan (1) Left inguinal hernia: Status: Acute Plan Plan to proceed with open left inguinal hernia repair with mesh. We reviewed the risks and benefits of mesh repair and he would like to proceed. Time Spent With Patient Critical Care time: I spent a total of [] minutes of critical care time on this patient's care today; this time is exclusive of procedural time.
[2022-07-21] MEDS: CEFAZOLIN 2 GM/100 ML PREMIX 100 ML IV (08:10)
[2022-07-21] MEDS: BUPIVACAINE 0.5% (PF) 30 ML, EPINEPHrine 0.15 MG INJ (08:22)
[2022-07-21] MEDS: ACETAMINOPHEN IV 1,000 MG/100 ML VIAL 400 MG IV (08:23)
--- NOTE | 2022-07-21 08:25 | SUR.OPER ---
Supine on padded OR bed, head on pillow, arms secured on padded arm boards at <90 degrees abduction, left wrist supported with gel pad, legs uncrossed, safety belt at thigh, tape over blanket over lower legs.
--- NOTE | 2022-07-21 09:37 | PM.OP.1 ---
Operative Date/Time/Diagnoses Date of procedure: 07/21/22 Time of procedure: 09:37 Pre-op diagnosis: Left inguinal hernia Post-op diagnosis: same Procedure & Clinicians Procedure: Left inguinal hernia repair with mesh Same procedure as scheduled: Yes Surgeon: Frederick Lopez Operative Notes Procedure in detail: Preoperative antibiotic was administered. The patient was brought to the operating room and placed on the table in supine position general anesthesia was induced. The left groin was prepped and draped in the normal fashion and a time-out was performed. Roughly 10 mL of local anesthetic were injected into the skin and subcutaneous adipose tissue over the left groin. A 6 cm incision was made over the left inguinal canal. Dissection was carried down through the subcutaneous adipose tissue. A bridging vein was cauterized. We exposed the external oblique aponeurosis in the direction of the fibers. Additional local was injected deep to the aponeurosis. A 15 blade scalpel was used to delaney the external oblique aponeurosis. Metzenbaum scissors were used to carefully open the aponeurosis in the direction of the fibers taking care not to injure the underlying ilioinguinal nerve which was well seen and protected. We completely exposed the inguinal canal. The cord was dissected free from the inguinal ligament and floor of the inguinal canal and the external oblique aponeurosis was dissected off of the internal oblique taking care not to injure the hypogastric nerve. We encircled the cord with a Idalia drain for retraction. There was a direct defect containing fatty tissue. We placed a polypropylene mesh over the inguinal canal floor. The mesh was secured with multiple interrupted 3-0 Prolene sutures to the pubic tubercle and shelving edge of the inguinal ligament as well as to the conjoint tendon medially. We overlapped the tails to recreate an internal ring and secured the medial tail to the inguinal ligament with additional sutures. We injected some more local into the fatty tissue in the inguinal canal and cord. Finally, we removed the Idalia drain and closed the external oblique fascia with a running 3-0 Vicryl suture. Skin was closed with interrupted 3-0 Vicryl dermal sutures and a running 4 Monocryl subcuticular stitch. EBL 5 mL The patient was awakened and brought to recovery room. Post-operative Condition: stable Disposition: PACU
[2022-07-21] MEDS: OXYCODONE IR 5 MG TABLET 10 MG PO (10:13)
== END 2022-07-21 10:50 | disposition home or self-care (01) ==
PROVIDERS: PCP Family Medicine; Referring Provider Surgery; Visit Provider Surgery
PROC: (CPT 49505; principal; 2022-07-21 07:45)
DX: K40.90 Unilateral inguinal hernia, without obstruction or gangrene, not specified as recurrent (principal); D45 Polycythemia vera
CPT/HCPCS: 49505; 00830; J0131; J0171; J0690; J1100; J1170; J1885; J2405; J2704

== ENCOUNTER → 2023-03-08 11:25 | Outpatient (CLI) | payer MEDICARE, OTHER, SELFPAY ==
--- NOTE | 2023-03-08 11:33 | DI.CT.S_ITS ---
PROCEDURE: CT ABDOMEN PELVIS W CON INDICATIONS: Left inguinal bulge TECHNIQUE: After the administration of intravenous contrast, axial sections acquired from the lung bases to the pubic symphysis. Coronal and sagittal reformats were performed. For radiation dose reduction, the following was used: automated exposure control, adjustment of mA and/or kV according to patient size. Images obtained during Valsalva. COMPARISON: None. FINDINGS: Image quality: Good images were obtained during Valsalva. Lower chest: Scattered scarring/atelectasis. No hiatal hernia. Solid organs: Nonspecific heterogeneous appearance of the liver, possibly related to contrast timing. Gallbladder is unremarkable. No pathologic dilation of the biliary tree or pancreatic duct. Mild splenomegaly at 15 cm. No adrenal nodules. No hydronephrosis. Vessels and lymph nodes: No abdominal aortic aneurysm. No pathologic adenopathy by size criteria. Bowel and peritoneum: No evidence of small bowel obstruction. No abscess or pathologic ascites. Moderate fecal loading. Appendix is normal. Body wall: Fat stranding and granulation tissue/scarring related to left inguinal hernia repair. No significant recurrent hernia. In the left inguinal canal, small amount of prominent fat is present measuring 1.1 cm in thickness. At the location of the BB marker in the left lower quadrant abdominal wall, there is prominent fat at the expected location of the left spigelian hernia. Questionable defect is seen more inferiorly (4/20). Pelvis: Bladder is unremarkable. Prostatomegaly and heterogeneity, not well assessed on CT. Consider PSA correlation. Bones: Hamstrings enthesopathy. Degenerative changes. Age-indeterminate height loss of the L1 vertebral body. IMPRESSION: No abscess or mass. Postsurgical changes of left inguinal hernia repair. At the location of the BB marker, there is asymmetric prominent fat at the expected location of a left spigelian hernia (4/18). There is a questionable defect seen more inferiorly (4/20). In the left inguinal canal, there is prominent fat measuring 1.1 cm in thickness (4/22) without definite defect. Please correlate with ultrasound and clinical exam for dynamic assessment of the above findings. Other incidental and likely nonacute findings are described above. Dictated by: Franklin Gill M.D. on 03/08/2023 at 14:47 Approved by: Franklin Gill M.D. on 03/08/2023 at 14:58
== END ==
PROVIDERS: PCP Family Medicine; Referring Provider Surgery; Visit Provider Surgery
DX: K40.90 Unilateral inguinal hernia, without obstruction or gangrene, not specified as recurrent (principal); R19.09 Other intra-abdominal and pelvic swelling, mass and lump; K43.9 Ventral hernia without obstruction or gangrene; N40.0 Benign prostatic hyperplasia without lower urinary tract symptoms
CPT/HCPCS: 74177; Q9967

== ENCOUNTER → 2023-04-05 13:02 | Outpatient (CLI) | payer MEDICARE, OTHER, SELFPAY ==
[2023-04-05 19:52] LABS: Add Manual Diff / Slide Review NO; Basophils Absolute Auto 0 /uL (0-100); Basophils Percent Auto 0.3 % (0-2); Eosinophils Absolute Auto 800 /uL (0-450); Eosinophils Percent Auto 4.4 % (2-4); Hematocrit 45.1 % (41-53); Hemoglobin 14.1 g/dL (13.5-17.5); Lymphocytes Absolute Auto 1600 /uL (1100-4500); Lymphocytes Percent Auto 8.7 % (25-40); Mean Corpuscular HGB Conc 31.2 % (30-36); Mean Corpuscular Hemoglobin 20.5 PG (26-34); Mean Corpuscular Volume 65.8 fL (80-100); Monocytes Absolute Auto 500 /uL (0-900); Monocytes Percent Auto 2.9 % (3-14); Neutrophils Absolute Auto 15000 /uL (1500-7000); Neutrophils Percent Auto 83.7 % (50-75); Platelet Count 488 X10^3/uL (150-400); Red Blood Cell Count 6.85 X10^6/uL (4.5-5.9); Red Cell Distribution Width 19.8 % (11.6-14.8); White Blood Cell Count 17.9 X10^3/uL (4.5-11.0)
[2023-04-05 19:57] LABS: Alanine Aminotransferase 21 IU/L (<50); Albumin 4.2 g/dL (3.5-5.0); Albumin Globulin Ratio 1.4 (1.0-2.8); Alkaline Phosphatase 117 U/L (38-126); Aspartate Aminotransferase 34 IU/L (17-59); Bilirubin Total 0.8 mg/dL (0.2-1.3); Blood Urea Nitrogen 21 mg/dL (9-20); Calcium 8.9 mg/dL (8.4-10.2); Carbon Dioxide 23 mmol/L (22-32); Chloride 102 mmol/L (98-107); Glucose 133 mg/dL (80-110); HEMOLYSIS 19 (0-50); Potassium 4.8 mmol/L (3.4-5.1); Total Protein 7.2 g/dL (6.3-8.2)
[2023-04-05 20:12] LABS: BUN Creatinine Ratio 20.8 (6-22); Estimated Glomerular Filt Rate > 60 mL/min (>60); Sodium 136 mmol/L (137-145)
[2023-04-05 20:50] LABS: Microcytosis 2+
== END ==
PROVIDERS: PCP Family Medicine; Visit Provider Internal Medicine Hematology & Oncology
DX: D45 Polycythemia vera (principal)
CPT/HCPCS: 80053; 85025

== ENCOUNTER → 2023-05-31 13:15 | Outpatient (CLI) | payer MEDICARE, OTHER, SELFPAY ==
[2023-05-31 19:38] LABS: Add Manual Diff / Slide Review NO; Basophils Absolute Auto 200 /uL (0-100); Eosinophils Absolute Auto 900 /uL (0-450); Eosinophils Percent Auto 5.8 % (2-4); Hematocrit 43.2 % (41-53); Hemoglobin 13.7 g/dL (13.5-17.5); Lymphocytes Absolute Auto 1700 /uL (1100-4500); Lymphocytes Percent Auto 10.5 % (25-40); Mean Corpuscular HGB Conc 31.6 % (30-36); Mean Corpuscular Hemoglobin 21.2 PG (26-34); Mean Corpuscular Volume 67.1 fL (80-100); Monocytes Absolute Auto 700 /uL (0-900); Neutrophils Absolute Auto 12900 /uL (1500-7000); Neutrophils Percent Auto 78.7 % (50-75); Platelet Count 656 X10^3/uL (150-400); Red Blood Cell Count 6.45 X10^6/uL (4.5-5.9); Red Cell Distribution Width 21.3 % (11.6-14.8); White Blood Cell Count 16.4 X10^3/uL (4.5-11.0)
[2023-05-31 19:43] LABS: Alanine Aminotransferase 20 IU/L (<50); Albumin 3.8 g/dL (3.5-5.0); Albumin Globulin Ratio 1.3 (1.0-2.8); Alkaline Phosphatase 140 U/L (38-126); Aspartate Aminotransferase 39 IU/L (17-59); BUN Creatinine Ratio 12.6 (6-22); Bilirubin Total 0.7 mg/dL (0.2-1.3); Blood Urea Nitrogen 13 mg/dL (9-20); Calcium 8.6 mg/dL (8.4-10.2); Carbon Dioxide 21 mmol/L (22-32); Chloride 103 mmol/L (98-107); Estimated Glomerular Filt Rate > 60 mL/min (>60); Glucose 130 mg/dL (80-110); HEMOLYSIS 44 (0-50); Sodium 135 mmol/L (137-145); Total Protein 6.8 g/dL (6.3-8.2)
[2023-05-31 19:44] LABS: Potassium 5.5 mmol/L (3.4-5.1)
[2023-05-31 20:18] LABS: Anisocytosis 2+; Microcytosis 1+
== END ==
PROVIDERS: PCP Family Medicine; Visit Provider Internal Medicine Hematology & Oncology
DX: D45 Polycythemia vera (principal)
CPT/HCPCS: 80053; 85025

== ENCOUNTER → 2023-06-30 13:08 | Outpatient (CLI) | payer MEDICARE, OTHER, SELFPAY ==
[2023-06-30 20:30] LABS: Alanine Aminotransferase 16 IU/L (<50); Albumin 4.2 g/dL (3.5-5.0); Albumin Globulin Ratio 1.4 (1.0-2.8); Alkaline Phosphatase 103 U/L (38-126); Aspartate Aminotransferase 30 IU/L (17-59); Bilirubin Total 0.8 mg/dL (0.2-1.3); Blood Urea Nitrogen 15 mg/dL (9-20); Calcium 8.8 mg/dL (8.4-10.2); Carbon Dioxide 25 mmol/L (22-32); Chloride 101 mmol/L (98-107); Estimated Glomerular Filt Rate > 60 mL/min (>60); Glucose 113 mg/dL (80-110); HEMOLYSIS < 15 (0-50); Sodium 135 mmol/L (137-145); Total Protein 7.2 g/dL (6.3-8.2)
[2023-06-30 20:47] LABS: Add Manual Diff / Slide Review NO; Basophils Absolute Auto 100 /uL (0-100); Basophils Percent Auto 0.9 % (0-2); Eosinophils Absolute Auto 800 /uL (0-450); Eosinophils Percent Auto 4.9 % (2-4); Hematocrit 45.3 % (41-53); Hemoglobin 14.2 g/dL (13.5-17.5); Lymphocytes Absolute Auto 1800 /uL (1100-4500); Lymphocytes Percent Auto 10.2 % (25-40); Mean Corpuscular HGB Conc 31.3 % (30-36); Mean Corpuscular Hemoglobin 21.1 PG (26-34); Mean Corpuscular Volume 67.4 fL (80-100); Monocytes Absolute Auto 500 /uL (0-900); Monocytes Percent Auto 3.1 % (3-14); Neutrophils Absolute Auto 13900 /uL (1500-7000); Neutrophils Percent Auto 80.9 % (50-75); Platelet Count 529 X10^3/uL (150-400); Red Blood Cell Count 6.72 X10^6/uL (4.5-5.9); Red Cell Distribution Width 20.7 % (11.6-14.8); White Blood Cell Count 17.2 X10^3/uL (4.5-11.0)
[2023-06-30 20:51] LABS: Potassium 5.9 mmol/L (3.4-5.1)
[2023-06-30 22:25] LABS: Anisocytosis 1+; Platelet Estimate Increased on smear; Platelet Morphology Comment NOTE
[2023-06-30 22:26] LABS: Microcytosis 1+
== END ==
PROVIDERS: PCP Family Medicine; Visit Provider Internal Medicine Hematology & Oncology
DX: D45 Polycythemia vera (principal)
CPT/HCPCS: 80053; 85025

== ENCOUNTER → 2023-07-21 09:29 | Outpatient (CLI) | payer MEDICARE, OTHER, SELFPAY ==
[2023-07-21 10:25] LABS: 585 Gram Check PASS; Amount Collected in g 585 g; Amount Collected mL calc 508 mL; Patient Weight <110 lb NO; Postdiastolic BP 81 mmHg; Postsystolic BP 146 mmHg; Prediastolic 75 mmHg; Presystolic 140 mmHg; Pulse 68 bpm; Site of phlebotomy Right antecubital; Temperature 97.3; Therapeutic Phleb Consent Chec Consent signed @ reg; Therapeutic Phleb Start Time 1010; Therapeutic Phleb Stop Time 1025; Zero Check Sebra Scale PASS
== END ==
PROVIDERS: PCP Family Medicine; Referring Provider Family Medicine; Visit Provider Family Medicine
DX: D45 Polycythemia vera (principal)
CPT/HCPCS: 99195

== ENCOUNTER → 2023-09-23 08:34 | Outpatient (CLI) | payer MEDICARE, OTHER, SELFPAY ==
[2023-09-23 09:10] LABS: Basophils Absolute Auto 200 /uL (0-100); Eosinophils Absolute Auto 1000 /uL (0-450); Hematocrit 47.5 % (41-53); Hemoglobin 14.5 g/dL (13.5-17.5); Lymphocytes Absolute Auto 2300 /uL (1100-4500); Lymphocytes Percent Auto 11.4 % (25-40); Mean Corpuscular HGB Conc 30.5 % (30-36); Mean Corpuscular Volume 65.6 fL (80-100); Monocytes Absolute Auto 900 /uL (0-900); Monocytes Percent Auto 4.6 % (3-14); Neutrophils Absolute Auto 15800 /uL (1500-7000); Platelet Count 579 X10^3/uL (150-400); Red Cell Distribution Width 19.8 % (11.6-14.8); White Blood Cell Count 20.3 X10^3/uL (4.5-11.0)
[2023-09-23 09:14] LABS: Add Manual Diff / Slide Review SLIDE REVIEW; Red Blood Cell Count 7.25 X10^6/uL (4.5-5.9)
[2023-09-23 09:24] LABS: RBC Morphology Normal Morphology
[2023-09-23 10:18] LABS: Therapeutic Phleb Consent Chec Consent signed @ reg; Zero Check Sebra Scale PASS
[2023-09-23 10:19] LABS: 585 Gram Check PASS; Amount Collected in g 585 g; Amount Collected mL calc 508 mL; Patient Weight <110 lb NO; Postdiastolic BP 89 mmHg; Postsystolic BP 146 mmHg; Prediastolic 77 mmHg; Presystolic 138 mmHg; Pulse 59 bpm; Site of phlebotomy Right antecubital; Temperature 97.7; Therapeutic Phleb Start Time 1000; Therapeutic Phleb Stop Time 1015
== END ==
PROVIDERS: PCP Family Medicine; Referring Provider Family Medicine; Visit Provider Family Medicine
DX: D45 Polycythemia vera (principal)
CPT/HCPCS: 36415; 85025; 99195

== ENCOUNTER → 2023-10-07 08:40 | Outpatient (CLI) | payer MEDICARE, OTHER, SELFPAY ==
[2023-10-07 09:09] LABS: Hematocrit 44.5 % (41-53); Hemoglobin 13.9 g/dL (13.5-17.5); Mean Corpuscular HGB Conc 31.2 % (30-36); Mean Corpuscular Hemoglobin 20.3 PG (26-34); Mean Corpuscular Volume 64.9 fL (80-100); Platelet Count 559 X10^3/uL (150-400); Red Blood Cell Count 6.85 X10^6/uL (4.5-5.9); Red Cell Distribution Width 20.4 % (11.6-14.8); White Blood Cell Count 18.6 X10^3/uL (4.5-11.0)
== END ==
PROVIDERS: PCP Family Medicine; Referring Provider Family Medicine; Visit Provider Family Medicine
DX: D45 Polycythemia vera (principal)
CPT/HCPCS: 36415; 85027

== ENCOUNTER → 2023-11-15 10:30 | Outpatient (CLI) | payer MEDICARE, OTHER, SELFPAY ==
[2023-11-15 11:34] LABS: Add Manual Diff / Slide Review NO; Basophils Absolute Auto 200 /uL (0-100); Basophils Percent Auto 0.8 % (0-2); Eosinophils Absolute Auto 900 /uL (0-450); Eosinophils Percent Auto 4.6 % (2-4); Hematocrit 47.2 % (41-53); Hemoglobin 14.4 g/dL (13.5-17.5); Lymphocytes Absolute Auto 2200 /uL (1100-4500); Mean Corpuscular HGB Conc 30.5 % (30-36); Mean Corpuscular Hemoglobin 20.1 PG (26-34); Mean Corpuscular Volume 65.9 fL (80-100); Monocytes Absolute Auto 700 /uL (0-900); Monocytes Percent Auto 3.3 % (3-14); Neutrophils Absolute Auto 16300 /uL (1500-7000); Neutrophils Percent Auto 80.3 % (50-75); Platelet Count 567 X10^3/uL (150-400); Red Blood Cell Count 7.17 X10^6/uL (4.5-5.9); Red Cell Distribution Width 20.4 % (11.6-14.8); White Blood Cell Count 20.3 X10^3/uL (4.5-11.0)
[2023-11-15 11:44] LABS: BUN Creatinine Ratio 16.2 (6-22); Blood Urea Nitrogen 16 mg/dL (9-20); Calcium 9.4 mg/dL (8.4-10.2); Carbon Dioxide 27 mmol/L (22-32); Chloride 103 mmol/L (98-107); Estimated Glomerular Filt Rate > 60 mL/min (>60); Glucose 104 mg/dL (80-110); HEMOLYSIS 15 (0-50); Potassium 5.1 mmol/L (3.4-5.1); Sodium 138 mmol/L (137-145)
[2023-11-15 12:23] LABS: Platelet Estimate Incr
[2023-11-15 12:24] LABS: Microcytosis 2+
[2023-11-15 12:25] LABS: Anisocytosis 2+; Ovalocytes 1+
== END ==
LOC: LAB 10:33
PROVIDERS: PCP Family Medicine; Referring Provider Family Medicine; Visit Provider Family Medicine
DX: D45 Polycythemia vera (principal)
CPT/HCPCS: 36415; 80048; 85025

== ENCOUNTER 2023-11-16 06:23 | Day surgery (SDC) | payer MEDICARE, OTHER, SELFPAY ==
[2023-11-09 13:27] VITALS: BMI 26.3
[2023-11-16] VITALS (9 sets, daily range): BP systolic 99–148; BP diastolic 62–82; PULSE 51–69; RESP 13–25; TEMP 36.6–37.7; O2SAT 92–97; BMI 25.4
[2023-11-16] MEDS: LACTATED RINGERS 1,000 ML 42 ML IV ×2 (07:06→09:56)
--- NOTE | 2023-11-16 07:50 | PM.HP.1 ---
History of Present Illness History of Present Illness Date Patient Seen: 11/16/23 Time Patient Seen: 07:50 Chief complaint: [facility] [place]ative: Saloni is a 72-year-old who had an open left hernia repair with June of 2022. Then noticed a recurrent bulge slightly above the old incision. It was questioned whether he had a recurrent left inguinal hernia or a spigelian hernia. A CT scan was performed in February of 2023 which did not show an obvious recurrence or spigelian bulge was palpable above and lateral to the old surgical scar. The bulge was become larger and more bothersome to since then. [facility] Medical History (Updated 11/16/23 @ 07:52 by Frederick Lopez MD) Easy bruisability Arthritis Sinus drainage History of blood clots Cataracts, bilateral Melanoma of wrist Polycythemia vera Surgical History (Updated 11/15/23 @ 10:53 by Kristal Rosales RN) Hx of left inguinal hernia repair (07/21/22) Hx of colonoscopy (2015) Hx of bilateral cataract extraction (2016) History of tonsillectomy (1958) Family History Father Hypertension Diabetes mellitus Cancer Mother Gallstones Social History household members: spouse Smoking Status: Never smoker alcohol intake: current substance use type: does not use Meds Home Medications and Allergies Home Medications Medication Instructions Recorded Confirmed Type aspirin 81 mg tablet,delayed 81 mg PO DAILY 04/29/22 11/16/23 History release cholecalciferol (vitamin D3) 125 125 mcg PO DAILY 04/29/22 03/08/23 History mcg (5,000 unit) capsule omega [id number]-[id number]-ogn-fish oil 60 mg-90 1 cap PO DAILY 04/29/22 03/08/23 History mg-500 mg capsule (Fish Oil) [place] Mushrooom 1 tab DAILY 05/28/22 03/08/23 History vitamin E 100 unit capsule 90 mg PO DAILY 12/03/22 03/08/23 History hydroxyurea 500 mg capsule 500 mg PO DAILY polycythemia vera 03/10/23 Rx #90 caps Allergies Allergy/AdvReac Type Severity Reaction Status Date / Time adhesive tape AdvReac Intermediate ITCHING Verified 11/16/23 06:49 Exam Vital Signs (past 8 hours): - 11/16/23 06:55 Temperature 97.9 F Pulse Rate 69 Respiratory Rate 18 Blood Pressure 148/82 H Pulse Oximetry 97 Oxygen Delivery Method Room Air Oxygen Delivery Method Room Air Narrative Exam Narrative: Reducible bulge in the left lower quadrant consistent with spigelian hernia. Assessment & Plan Assessment and plan (1) Spigelian hernia: Status: Acute Plan Pat is a 72-year-old man with a recurrent left inguinal hernia versus spigelian hernia. At this point I feel that spigelian hernia is somewhat likely based on exam. I told path the plan will be to put a camera in and confirm the diagnosis. I would then either repair of the hernia laparoscopically with mesh or if it is left spigelian hernia and may repair it from an anterior approach to reduce the anesthetic time. He would like to proceed.
[2023-11-16] MEDS: CEFAZOLIN 2 GM/100 ML PREMIX 100 ML IV (08:10)
--- NOTE | 2023-11-16 08:21 | SUR.OPER ---
Supine on pink padded OR bed, head on pillow, arms padded and tucked at sides, legs uncrossed, safety belt at thigh, tape over blanket over lower legs .
[2023-11-16] MEDS: BUPIVACAINE 0.5% (PF) 30 ML, EPINEPHrine 0.15 MG INJ (08:33)
--- NOTE | 2023-11-16 09:46 | P.OP_ITS ---
Operative Date/Time/Diagnoses Date of procedure: 11/16/23 Time of procedure: 09:46 Pre-op diagnosis: Left spigelian hernia Post-op diagnosis: same Procedure & Clinicians Procedure: Laparoscopic left spigelian hernia repair with mesh Same procedure as scheduled: Yes Surgeon: Frederick Lopez Anesthesia Type: General Operative Notes Procedure in detail: The patient is a 72-year-old man who had a left lower quadrant painful bulge. It was felt to be either a recurrent left inguinal hernia or a new spigelian hernia of the left lower abdomen. He was consented for a laparoscopic left inguinal hernia versus spigelian repair with mesh. The patient was given preoperative antibiotics. The patient was brought to the operating room, placed on the table in the supine position with the arms tucked and general anesthesia was induced. The abdomen was prepped and draped in the usual fashion. A time-out was performed. A 1 cm transverse incision was created superior to the umbilicus and dissection was carried down to the fascia. The fascia was grasped with a Orlando clamp to elevate the abdominal wall. The fascia was scored transversely with cautery. A Peon clamp was used to elliott the peritoneum. The Kenneth port was placed and the abdomen was insufflated to 15 mmHg. The camera was inserted, there was no evidence of any injury from the entry. The hernia defect was noted about 3 cm superior and slightly lateral of the internal ring. There was no obvious direct or indirect defect. 5 mm ports were placed under direct vision in the mid left and mid right abdomen. The patient was positioned in Trendelenburg. We created left peritoneal flap several cm superior to the hernia defect. The peritoneum was dissected out of the hernia defect as well as medially and inferiorly over the myopectineal orifice. The medial extent of the dissection overlapped what would be done for a laparoscopic inguinal hernia repair. Adolph's ligament was exposed. The spigelian fascial defect was closed with a running 3-0 barbed suture. A large left Bard mesh was brought in and placed over the defect with the medial edge against Adolph's ligament. We then closed the peritoneal flap with a running 3- 0 barbed suture. There was one defect in the peritoneal flap that was closed with an additional 3-0 barbed suture. We took one last look around the abdomen and saw no other abnormalities. The suture was removed and accounted for. The 5 mm ports were removed under direct vision. The abdomen was desufflated. The Kenneth port was removed. Additional local was injected into the fascia and the fascial incision was closed with 2 interrupted 0 Vicryl sutures. The skin incisions were closed with 4 Monocryl, Steri-Strips and Band-Aids. EBL: 10 mL Post-operative Disposition: PACU
[2023-11-16] MEDS: ONDANSETRON 4 MG/2 ML INJ IV (10:15)
[2023-11-16] MEDS: ACETAMINOPHEN 325 MG TABLET 650 MG PO (10:15)
[2023-11-16] MEDS: OXYCODONE IR 5 MG TABLET PO (10:15)
== END 2023-11-16 10:54 | disposition home or self-care (01) ==
PROVIDERS: PCP Family Medicine; Referring Provider Surgery; Visit Provider Surgery
PROC: 0YQ64ZZ Repair Left Inguinal Region, Percutaneous Endoscopic Approach (ICD-10-PCS; CPT 49593; principal; 2023-11-16 07:45)
DX: K43.9 Ventral hernia without obstruction or gangrene (principal)
CPT/HCPCS: 49593; J0171; J0690; J1100; J2405; J2704; J3010

== ENCOUNTER → 2023-12-03 09:50 | Outpatient (CLI) | payer MEDICARE, OTHER, SELFPAY ==
[2023-12-03 10:09] LABS: Hematocrit 45.2 % (41-53)
[2023-12-03 13:41] LABS: 585 Gram Check PASS; Amount Collected in g 585 g; Amount Collected mL calc 508 mL; Patient Weight <110 lb NO; Postdiastolic BP 69 mmHg; Postsystolic BP 143 mmHg; Prediastolic 73 mmHg; Presystolic 133 mmHg; Pulse 55 bpm; Site of phlebotomy Left antecubital; Temperature 97.3; Therapeutic Phleb Consent Chec Consent signed @ reg; Therapeutic Phleb Start Time 1012; Therapeutic Phleb Stop Time 1030; Zero Check Sebra Scale PASS
== END ==
LOC: LAB 09:52
PROVIDERS: PCP Family Medicine; Referring Provider Family Medicine; Visit Provider Family Medicine
DX: D45 Polycythemia vera (principal)
CPT/HCPCS: 36415; 85014; 85018; 99195

== ENCOUNTER → 2024-02-09 08:44 | Outpatient (CLI) | payer MEDICARE, OTHER, SELFPAY ==
[2024-02-09 10:56] LABS: Alanine Aminotransferase 16 IU/L (<50); Albumin 4.3 g/dL (3.5-5.0); Albumin Globulin Ratio 1.5 (1.0-2.8); Alkaline Phosphatase 96 U/L (38-126); Aspartate Aminotransferase 29 IU/L (17-59); BUN Creatinine Ratio 18.1 (6-22); Bilirubin Total 0.7 mg/dL (0.2-1.3); Blood Urea Nitrogen 17 mg/dL (9-20); Calcium 9.5 mg/dL (8.4-10.2); Carbon Dioxide 27 mmol/L (22-32); Chloride 104 mmol/L (98-107); Estimated Glomerular Filt Rate > 60 mL/min (>60); Globulin 2.9 g/dL (1.7-4.1); Glucose 81 mg/dL (80-110); HEMOLYSIS < 15 (0-50); Sodium 137 mmol/L (137-145); Total Protein 7.2 g/dL (6.3-8.2)
[2024-02-09 10:57] LABS: Potassium 5.3 mmol/L (3.4-5.1)
[2024-02-09 11:45] LABS: Add Manual Diff / Slide Review NO; Basophils Absolute Auto 100 /uL (0-100); Basophils Percent Auto 0.3 % (0-2); Eosinophils Absolute Auto 1000 /uL (0-450); Eosinophils Percent Auto 5.3 % (2-4); Hematocrit 43.8 % (41-53); Hemoglobin 13.7 g/dL (13.5-17.5); Lymphocytes Absolute Auto 1900 /uL (1100-4500); Lymphocytes Percent Auto 10.1 % (25-40); Mean Corpuscular HGB Conc 31.3 % (30-36); Mean Corpuscular Volume 64.1 fL (80-100); Monocytes Absolute Auto 700 /uL (0-900); Monocytes Percent Auto 3.6 % (3-14); Neutrophils Absolute Auto 15400 /uL (1500-7000); Neutrophils Percent Auto 80.7 % (50-75); Platelet Count 607 X10^3/uL (150-400); Red Blood Cell Count 6.84 X10^6/uL (4.5-5.9); Red Cell Distribution Width 20.3 % (11.6-14.8); White Blood Cell Count 19.1 X10^3/uL (4.5-11.0)
[2024-02-09 12:09] LABS: Anisocytosis 2+; Microcytosis 2+; Ovalocytes 1+
== END ==
PROVIDERS: PCP Family Medicine; Referring Provider Family Medicine; Visit Provider Family Medicine
DX: D45 Polycythemia vera (principal)
CPT/HCPCS: 36415; 80053; 85025

== ENCOUNTER → 2024-03-07 11:03 | Outpatient (CLI) | payer MEDICARE, OTHER, SELFPAY ==
[2024-03-07 11:24] LABS: Hematocrit 46.1 % (41-53); Hemoglobin 14.2 g/dL (13.5-17.5)
[2024-03-07 12:04] LABS: 585 Gram Check PASS; Patient Weight <110 lb NO; Therapeutic Phleb Consent Chec Consent signed @ reg; Zero Check Sebra Scale PASS
[2024-03-07 12:05] LABS: Amount Collected in g 585 g; Amount Collected mL calc 508 mL; Postdiastolic BP 82 mmHg; Postsystolic BP 152 mmHg; Prediastolic 80 mmHg; Presystolic 160 mmHg; Pulse 58 bpm; Site of phlebotomy Right antecubital; Therapeutic Phleb Start Time 1130; Therapeutic Phleb Stop Time 1150
== END ==
LOC: LAB 11:06
PROVIDERS: PCP Family Medicine; Referring Provider Family Medicine; Visit Provider Family Medicine
DX: D45 Polycythemia vera (principal)
CPT/HCPCS: 36415; 85014; 85018; 99195

== ENCOUNTER → 2024-05-16 09:46 | Outpatient (CLI) | payer MEDICARE, OTHER, SELFPAY ==
[2024-05-16 10:11] LABS: Add Manual Diff / Slide Review NO; Basophils Absolute Auto 100 /uL (0-100); Basophils Percent Auto 0.6 % (0-2); Eosinophils Absolute Auto 800 /uL (0-450); Eosinophils Percent Auto 4.1 % (2-4); Hematocrit 44.6 % (41-53); Hemoglobin 13.6 g/dL (13.5-17.5); Lymphocytes Absolute Auto 2000 /uL (1100-4500); Lymphocytes Percent Auto 9.7 % (25-40); Mean Corpuscular HGB Conc 30.6 % (30-36); Mean Corpuscular Hemoglobin 19.8 PG (26-34); Mean Corpuscular Volume 64.9 fL (80-100); Monocytes Absolute Auto 700 /uL (0-900); Monocytes Percent Auto 3.3 % (3-14); Neutrophils Absolute Auto 17000 /uL (1500-7000); Neutrophils Percent Auto 82.3 % (50-75); Platelet Count 664 X10^3/uL (150-400); Red Blood Cell Count 6.87 X10^6/uL (4.5-5.9); White Blood Cell Count 20.6 X10^3/uL (4.5-11.0)
[2024-05-16 10:34] LABS: Anisocytosis 2+
== END ==
PROVIDERS: PCP Family Medicine; Referring Provider Family Medicine; Visit Provider Family Medicine
DX: D45 Polycythemia vera (principal)
CPT/HCPCS: 36415; 85025

== ENCOUNTER → 2024-06-16 09:02 | Outpatient (CLI) | payer MEDICARE, OTHER, SELFPAY ==
[2024-06-16 09:28] LABS: Hematocrit 46.3 % (41-53); Hemoglobin 14.4 g/dL (13.5-17.5); Mean Corpuscular Volume 64.3 fL (80-100); Platelet Count 566 X10^3/uL (150-400); Red Cell Distribution Width 20.6 % (11.6-14.8); White Blood Cell Count 19.5 X10^3/uL (4.5-11.0)
[2024-06-16 09:29] LABS: Add Manual Diff / Slide Review YES; Red Blood Cell Count 7.19 X10^6/uL (4.5-5.9)
[2024-06-16 09:42] LABS: Anisocytosis 3+; Neutrophils Absolute Manual 16380 /uL (3000-5900); Total Cells Counted 100
[2024-06-16 09:44] LABS: Hypochromasia 1+; Ovalocytes 1+
[2024-06-16 09:45] LABS: Platelet Estimate Incr; RBC Morphology See
[2024-06-16 10:09] LABS: Alanine Aminotransferase 15 IU/L (<50); Albumin 4.3 g/dL (3.5-5.0); Albumin Globulin Ratio 1.7 (1.0-2.8); Alkaline Phosphatase 101 U/L (38-126); Aspartate Aminotransferase 27 IU/L (17-59); BUN Creatinine Ratio 13.7 (6-22); Bilirubin Total 0.7 mg/dL (0.2-1.3); Blood Urea Nitrogen 14 mg/dL (9-20); Calcium 9.4 mg/dL (8.4-10.2); Carbon Dioxide 21 mmol/L (22-32); Chloride 106 mmol/L (98-107); Estimated Glomerular Filt Rate > 60 mL/min (>60); Globulin 2.5 g/dL (1.7-4.1); Glucose 101 mg/dL (80-110); HEMOLYSIS < 15 (0-50); Sodium 138 mmol/L (137-145); Total Protein 6.8 g/dL (6.3-8.2)
[2024-06-16 10:11] LABS: Potassium 5.4 mmol/L (3.4-5.1)
[2024-06-16 12:02] LABS: 585 Gram Check PASS; Patient Weight <110 lb NO; Therapeutic Phleb Consent Chec Consent signed @ reg; Zero Check Sebra Scale PASS
[2024-06-16 12:04] LABS: Amount Collected in g 585 g; Amount Collected mL calc 508 mL; Prediastolic 85 mmHg; Presystolic 151 mmHg; Pulse 68 bpm; Site of phlebotomy Right antecubital; Temperature 97.9; Therapeutic Phleb Start Time 1110; Therapeutic Phleb Stop Time 1130
[2024-06-16 12:05] LABS: Postdiastolic BP 86 mmHg; Postsystolic BP 158 mmHg
== END ==
LOC: LAB 09:04
PROVIDERS: PCP Family Medicine; Referring Provider Family Medicine; Visit Provider Family Medicine
DX: D45 Polycythemia vera (principal)
CPT/HCPCS: 36415; 80053; 85007; 85025; 99195

== ENCOUNTER → 2024-08-10 08:51 | Outpatient (CLI) | payer MEDICARE, OTHER, SELFPAY ==
[2024-08-10 10:17] LABS: Add Manual Diff / Slide Review NO; Basophils Absolute Auto 100 /uL (0-100); Basophils Percent Auto 0.5 % (0-2); Eosinophils Absolute Auto 1400 /uL (0-450); Eosinophils Percent Auto 6.8 % (2-4); Hemoglobin 14.3 g/dL (13.5-17.5); Lymphocytes Absolute Auto 2000 /uL (1100-4500); Mean Corpuscular HGB Conc 31.1 % (30-36); Mean Corpuscular Hemoglobin 20.1 PG (26-34); Mean Corpuscular Volume 64.7 fL (80-100); Monocytes Absolute Auto 800 /uL (0-900); Monocytes Percent Auto 3.8 % (3-14); Neutrophils Absolute Auto 16200 /uL (1500-7000); Neutrophils Percent Auto 78.9 % (50-75); Platelet Count 572 X10^3/uL (150-400); Red Cell Distribution Width 20.7 % (11.6-14.8); White Blood Cell Count 20.6 X10^3/uL (4.5-11.0)
[2024-08-10 10:18] LABS: Red Blood Cell Count 7.11 X10^6/uL (4.5-5.9)
[2024-08-10 10:36] LABS: Alanine Aminotransferase 14 IU/L (<50); Albumin 4.1 g/dL (3.5-5.0); Albumin Globulin Ratio 1.4 (1.0-2.8); Alkaline Phosphatase 99 U/L (38-126); Aspartate Aminotransferase 29 IU/L (17-59); Bilirubin Total 0.8 mg/dL (0.2-1.3); Blood Urea Nitrogen 16 mg/dL (9-20); Calcium 9.4 mg/dL (8.4-10.2); Carbon Dioxide 24 mmol/L (22-32); Chloride 103 mmol/L (98-107); Estimated Glomerular Filt Rate > 60 mL/min (>60); Glucose 89 mg/dL (80-110); HEMOLYSIS < 15 (0-50); Potassium 5.2 mmol/L (3.4-5.1); Sodium 135 mmol/L (137-145); Total Protein 7.1 g/dL (6.3-8.2)
[2024-08-10 11:38] LABS: Anisocytosis 1+; Poikilocytosis 1+
== END ==
PROVIDERS: PCP Family Medicine; Referring Provider Family Medicine; Visit Provider Family Medicine
DX: D45 Polycythemia vera (principal)
CPT/HCPCS: 36415; 80053; 85025

== ENCOUNTER → 2024-08-23 08:37 | Outpatient (CLI) | payer MEDICARE, OTHER, SELFPAY ==
[2024-08-23 09:01] LABS: Add Manual Diff / Slide Review NO; Basophils Absolute Auto 100 /uL (0-100); Basophils Percent Auto 0.6 % (0-2); Eosinophils Absolute Auto 1400 /uL (0-450); Eosinophils Percent Auto 6.7 % (2-4); Hematocrit 46.8 % (41-53); Hemoglobin 14.3 g/dL (13.5-17.5); Lymphocytes Absolute Auto 2400 /uL (1100-4500); Lymphocytes Percent Auto 11.3 % (25-40); Mean Corpuscular HGB Conc 30.5 % (30-36); Mean Corpuscular Hemoglobin 19.9 PG (26-34); Mean Corpuscular Volume 65.1 fL (80-100); Monocytes Absolute Auto 800 /uL (0-900); Monocytes Percent Auto 3.9 % (3-14); Neutrophils Absolute Auto 16100 /uL (1500-7000); Neutrophils Percent Auto 77.5 % (50-75); Platelet Count 596 X10^3/uL (150-400); Red Cell Distribution Width 20.7 % (11.6-14.8); White Blood Cell Count 20.8 X10^3/uL (4.5-11.0)
[2024-08-23 09:02] LABS: Red Blood Cell Count 7.18 X10^6/uL (4.5-5.9)
[2024-08-23 09:15] LABS: Anisocytosis 2+; Microcytosis 2+
[2024-08-23 09:21] LABS: Poikilocytosis 1+
[2024-08-23 11:36] LABS: 585 Gram Check PASS; Amount Collected in g 585 g; Amount Collected mL calc 508 mL; Patient Weight <110 lb NO; Postdiastolic BP 77 mmHg; Postsystolic BP 144 mmHg; Prediastolic 69 mmHg; Presystolic 133 mmHg; Pulse 67 bpm; Site of phlebotomy Right antecubital; Temperature 97.9; Therapeutic Phleb Consent Chec Consent signed @ reg; Therapeutic Phleb Start Time 1115; Therapeutic Phleb Stop Time 1135; Zero Check Sebra Scale PASS
== END ==
PROVIDERS: PCP Family Medicine; Referring Provider Family Medicine; Visit Provider Family Medicine
DX: D45 Polycythemia vera (principal)
CPT/HCPCS: 36415; 85025; 99195

== ENCOUNTER → 2024-09-12 08:39 | Outpatient (CLI) | payer MEDICARE, OTHER, SELFPAY ==
[2024-09-12 10:25] LABS: Hematocrit 44.9 % (41-53); Hemoglobin 13.6 g/dL (13.5-17.5); Mean Corpuscular HGB Conc 30.2 % (30-36); Mean Corpuscular Hemoglobin 19.7 PG (26-34); Mean Corpuscular Volume 65.3 fL (80-100); Platelet Count 610 X10^3/uL (150-400); Red Blood Cell Count 6.88 X10^6/uL (4.5-5.9); Red Cell Distribution Width 20.2 % (11.6-14.8); White Blood Cell Count 19.2 X10^3/uL (4.5-11.0)
[2024-09-12 10:27] LABS: Add Manual Diff / Slide Review YES
[2024-09-12 10:39] LABS: Neutrophils Absolute Manual 15744 /uL (3000-5900); Total Cells Counted 100
[2024-09-12 10:41] LABS: Anisocytosis 2+; Microcytosis 4+; Poikilocytosis 1+
[2024-09-12 10:49] LABS: Alanine Aminotransferase 17 IU/L (<50); Albumin 4.4 g/dL (3.5-5.0); Albumin Globulin Ratio 1.7 (1.0-2.8); Alkaline Phosphatase 100 U/L (38-126); Aspartate Aminotransferase 29 IU/L (17-59); Bilirubin Total 0.8 mg/dL (0.2-1.3); Blood Urea Nitrogen 17 mg/dL (9-20); Calcium 9.3 mg/dL (8.4-10.2); Carbon Dioxide 25 mmol/L (22-32); Chloride 104 mmol/L (98-107); Estimated Glomerular Filt Rate > 60 mL/min (>60); Globulin 2.6 g/dL (1.7-4.1); Glucose 77 mg/dL (80-110); HEMOLYSIS < 15 (0-50); Potassium 5.2 mmol/L (3.4-5.1); Sodium 138 mmol/L (137-145)
== END ==
PROVIDERS: PCP Family Medicine; Referring Provider Family Medicine; Visit Provider Family Medicine
DX: D45 Polycythemia vera (principal)
CPT/HCPCS: 36415; 80053; 85007; 85025

== ENCOUNTER → 2024-11-02 10:09 | Outpatient (CLI) | payer MEDICARE, OTHER, SELFPAY ==
[2024-11-02 10:40] LABS: Add Manual Diff / Slide Review NO; Basophils Absolute Auto 100 /uL (0-100); Basophils Percent Auto 0.3 % (0-2); Eosinophils Absolute Auto 1000 /uL (0-450); Hematocrit 46.9 % (41-53); Hemoglobin 14.4 g/dL (13.5-17.5); Lymphocytes Absolute Auto 1700 /uL (1100-4500); Lymphocytes Percent Auto 8.9 % (25-40); Mean Corpuscular HGB Conc 30.7 % (30-36); Mean Corpuscular Hemoglobin 19.9 PG (26-34); Mean Corpuscular Volume 64.6 fL (80-100); Monocytes Absolute Auto 700 /uL (0-900); Monocytes Percent Auto 3.4 % (3-14); Neutrophils Absolute Auto 15900 /uL (1500-7000); Neutrophils Percent Auto 82.4 % (50-75); Platelet Count 653 X10^3/uL (150-400); Red Blood Cell Count 7.25 X10^6/uL (4.5-5.9); Red Cell Distribution Width 20.8 % (11.6-14.8); White Blood Cell Count 19.4 X10^3/uL (4.5-11.0)
[2024-11-02 11:09] LABS: Alanine Aminotransferase 17 IU/L (<50); Albumin 4.2 g/dL (3.5-5.0); Albumin Globulin Ratio 1.6 (1.0-2.8); Alkaline Phosphatase 88 U/L (38-126); Aspartate Aminotransferase 29 IU/L (17-59); BUN Creatinine Ratio 11.2 (6-22); Bilirubin Total 0.7 mg/dL (0.2-1.3); Blood Urea Nitrogen 13 mg/dL (9-20); Calcium 9.6 mg/dL (8.4-10.2); Carbon Dioxide 27 mmol/L (22-32); Chloride 104 mmol/L (98-107); Estimated Glomerular Filt Rate > 60 mL/min (>60); Globulin 2.6 g/dL (1.7-4.1); Glucose 103 mg/dL (80-110); HEMOLYSIS < 15 (0-50); Potassium 5.2 mmol/L (3.4-5.1); Sodium 138 mmol/L (137-145); Total Protein 6.8 g/dL (6.3-8.2)
[2024-11-02 11:10] LABS: Platelet Estimate Increased on smear
[2024-11-02 11:11] LABS: Anisocytosis 2+; Microcytosis 2+
[2024-11-02 11:43] LABS: 585 Gram Check PASS; Therapeutic Phleb Consent Chec Consent signed @ reg; Zero Check Sebra Scale PASS
[2024-11-02 11:44] LABS: Patient Weight <110 lb NO; Prediastolic 58 mmHg; Presystolic 160 mmHg; Pulse 58 bpm; Temperature 97.7; Therapeutic Phleb Start Time 1130
[2024-11-02 11:45] LABS: Amount Collected in g 585 g; Amount Collected mL calc 508 mL; Postdiastolic BP 75 mmHg; Postsystolic BP 150 mmHg; Site of phlebotomy Right antecubital; Therapeutic Phleb Stop Time 1140
== END ==
PROVIDERS: PCP Family Medicine; Referring Provider Family Medicine; Visit Provider Family Medicine
DX: D45 Polycythemia vera (principal)
CPT/HCPCS: 36415; 80053; 85025; 99195

== ENCOUNTER → 2024-12-13 13:22 | Outpatient (CLI) | payer MEDICARE, OTHER, SELFPAY ==
[2024-12-13 14:33] LABS: Add Manual Diff / Slide Review NO; Basophils Absolute Auto 100 /uL (0-100); Basophils Percent Auto 0.4 % (0-2); Eosinophils Absolute Auto 900 /uL (0-450); Eosinophils Percent Auto 5.4 % (2-4); Hematocrit 43.1 % (41-53); Hemoglobin 13.2 g/dL (13.5-17.5); Lymphocytes Absolute Auto 2100 /uL (1100-4500); Lymphocytes Percent Auto 12.1 % (25-40); Mean Corpuscular HGB Conc 30.5 % (30-36); Mean Corpuscular Hemoglobin 19.7 PG (26-34); Mean Corpuscular Volume 64.5 fL (80-100); Monocytes Absolute Auto 500 /uL (0-900); Monocytes Percent Auto 2.8 % (3-14); Neutrophils Absolute Auto 13900 /uL (1500-7000); Neutrophils Percent Auto 79.3 % (50-75); Platelet Count 596 X10^3/uL (150-400); Red Blood Cell Count 6.68 X10^6/uL (4.5-5.9); Red Cell Distribution Width 21.4 % (11.6-14.8); White Blood Cell Count 17.5 X10^3/uL (4.5-11.0)
[2024-12-13 15:02] LABS: Alanine Aminotransferase 17 IU/L (<50); Albumin 4.3 g/dL (3.5-5.0); Albumin Globulin Ratio 1.7 (1.0-2.8); Alkaline Phosphatase 97 U/L (38-126); Aspartate Aminotransferase 28 IU/L (17-59); BUN Creatinine Ratio 13.9 (6-22); Bilirubin Total 0.6 mg/dL (0.2-1.3); Blood Urea Nitrogen 15 mg/dL (9-20); Calcium 9.1 mg/dL (8.4-10.2); Carbon Dioxide 24 mmol/L (22-32); Chloride 104 mmol/L (98-107); Estimated Glomerular Filt Rate > 60 mL/min (>60); Globulin 2.5 g/dL (1.7-4.1); Glucose 122 mg/dL (80-110); HEMOLYSIS < 15 (0-50); Potassium 5.1 mmol/L (3.4-5.1); Sodium 138 mmol/L (137-145); Total Protein 6.8 g/dL (6.3-8.2)
[2024-12-13 15:52] LABS: Anisocytosis 1+; Microcytosis 2+
[2024-12-13 15:53] LABS: Poikilocytosis 1+
== END ==
PROVIDERS: PCP Family Medicine; Referring Provider Family Medicine; Visit Provider Family Medicine
DX: D45 Polycythemia vera (principal)
CPT/HCPCS: 36415; 80053; 85025

== ENCOUNTER → 2025-02-21 08:37 | Outpatient (CLI) | payer MEDICARE, OTHER, SELFPAY ==
[2025-02-21 09:49] LABS: Add Manual Diff / Slide Review NO; Basophils Absolute Auto 0 /uL (0-100); Basophils Percent Auto 0.2 % (0-2); Eosinophils Absolute Auto 1100 /uL (0-450); Eosinophils Percent Auto 4.9 % (2-4); Hematocrit 45.9 % (41-53); Hemoglobin 14.3 g/dL (13.5-17.5); Lymphocytes Absolute Auto 2900 /uL (1100-4500); Lymphocytes Percent Auto 13.3 % (25-40); Mean Corpuscular HGB Conc 31.3 % (30-36); Mean Corpuscular Hemoglobin 20.1 PG (26-34); Mean Corpuscular Volume 64.4 fL (80-100); Monocytes Absolute Auto 700 /uL (0-900); Monocytes Percent Auto 3.4 % (3-14); Neutrophils Absolute Auto 17300 /uL (1500-7000); Neutrophils Percent Auto 78.2 % (50-75); Platelet Count 619 X10^3/uL (150-400); White Blood Cell Count 22.1 X10^3/uL (4.5-11.0)
[2025-02-21 09:52] LABS: Red Blood Cell Count 7.12 X10^6/uL (4.5-5.9)
[2025-02-21 10:32] LABS: Microcytosis 1+
[2025-02-21 10:34] LABS: Poikilocytosis 2+
[2025-02-21 10:35] LABS: Ovalocytes 1+; Tear Drop Cells 1+
[2025-02-21 10:36] LABS: Anisocytosis 3+
[2025-02-21 12:15] LABS: 585 Gram Check PASS; Patient Weight <110 lb NO; Presystolic 136 mmHg; Pulse 75 bpm; Therapeutic Phleb Consent Chec Consent signed @ reg; Zero Check Sebra Scale PASS
[2025-02-21 12:16] LABS: Amount Collected in g 585 g; Amount Collected mL calc 508 mL; Dizziness N; Postdiastolic BP 76 mmHg; Postsystolic BP 139 mmHg; Prediastolic 69 mmHg; Site of phlebotomy Right antecubital; Swelling N; Temperature 97.3; Therapeutic Phleb Start Time 1110; Therapeutic Phleb Stop Time 1125
[2025-02-21 12:50] LABS: Alanine Aminotransferase 20 IU/L (<50); Albumin 4.3 g/dL (3.5-5.0); Albumin Globulin Ratio 1.7 (1.0-2.8); Alkaline Phosphatase 102 U/L (38-126); Aspartate Aminotransferase 36 IU/L (17-59); BUN Creatinine Ratio 15.2 (6-22); Bilirubin Total 0.7 mg/dL (0.2-1.3); Blood Urea Nitrogen 17 mg/dL (9-20); Calcium 8.8 mg/dL (8.4-10.2); Carbon Dioxide 24 mmol/L (22-32); Chloride 104 mmol/L (98-107); Estimated Glomerular Filt Rate > 60 mL/min (>60); Globulin 2.5 g/dL (1.7-4.1); Glucose 92 mg/dL (70-99); HEMOLYSIS 27 (0-50); Sodium 137 mmol/L (137-145); Total Protein 6.8 g/dL (6.3-8.2)
[2025-02-21 12:51] LABS: Potassium 5.4 mmol/L (3.4-5.1)
== END ==
PROVIDERS: PCP Family Medicine; Referring Provider Family Medicine; Visit Provider Family Medicine
DX: D45 Polycythemia vera (principal)
CPT/HCPCS: 36415; 80053; 85025; 99195

== ENCOUNTER → 2025-05-28 09:17 | Outpatient (CLI) | payer MEDICARE, OTHER, SELFPAY ==
[2025-05-28 10:24] LABS: Add Manual Diff / Slide Review NO; Hematocrit 47.0 % (41-53); Hemoglobin 14.6 g/dL (13.5-17.5); Lymphocytes Absolute Auto 2100 /uL (1100-4500); Mean Corpuscular HGB Conc 31.1 % (30-36); Mean Corpuscular Hemoglobin 20.3 PG (26-34); Mean Corpuscular Volume 65.5 fL (80-100); Platelet Count 615 X10^3/uL (150-400)
[2025-05-28 10:51] LABS: Alanine Aminotransferase 20 IU/L (<50); Albumin 4.5 g/dL (3.5-5.0); Albumin Globulin Ratio 1.7 (1.0-2.8); Alkaline Phosphatase 98 U/L (38-126); Blood Urea Nitrogen 17 mg/dL (9-20); Calcium 9.0 mg/dL (8.4-10.2); Carbon Dioxide 25 mmol/L (22-32); Chloride 104 mmol/L (98-107); Estimated Glomerular Filt Rate > 60 mL/min (>60); Globulin 2.6 g/dL (1.7-4.1); Glucose 143 mg/dL (70-99); HEMOLYSIS 20 (0-50); Potassium 5.2 mmol/L (3.4-5.1); Sodium 137 mmol/L (137-145); Total Protein 7.1 g/dL (6.3-8.2)
[2025-05-28 11:17] LABS: Anisocytosis 1+; Hypochromasia 1+; Microcytosis 1+
[2025-05-28 11:32] LABS: Therapeutic Phleb Consent Chec Consent signed @ reg; Zero Check Sebra Scale PASS
[2025-05-28 11:33] LABS: 585 Gram Check PASS; Amount Collected in g 585 g; Amount Collected mL calc 508 mL; Patient Weight <110 lb NO; Therapeutic Phleb Start Time 1113; Therapeutic Phleb Stop Time 1119
[2025-05-28 11:34] LABS: Dizziness N; Postdiastolic BP 81 mmHg; Postsystolic BP 144 mmHg; Swelling N
== END ==
PROVIDERS: PCP Family Medicine; Referring Provider Family Medicine; Visit Provider Family Medicine
DX: D45 Polycythemia vera (principal)
CPT/HCPCS: 36415; 80053; 85025; 99195

== ENCOUNTER → 2025-07-18 08:59 | Outpatient (CLI) | payer MEDICARE, OTHER, SELFPAY ==
[2025-07-18 09:31] LABS: Add Manual Diff / Slide Review NO; Hematocrit 45.6 % (41-53); Hemoglobin 14.1 g/dL (13.5-17.5); Lymphocytes Absolute Auto 2100 /uL (1100-4500); Mean Corpuscular HGB Conc 31.0 % (30-36); Mean Corpuscular Hemoglobin 19.8 PG (26-34); Mean Corpuscular Volume 64.1 fL (80-100); Platelet Count 663 X10^3/uL (150-400)
[2025-07-18 09:46] LABS: Alanine Aminotransferase 13 IU/L (<50); Albumin 4.4 g/dL (3.5-5.0); Albumin Globulin Ratio 1.5 (1.0-2.8); Alkaline Phosphatase 86 U/L (38-126); Blood Urea Nitrogen 16 mg/dL (9-20); Calcium 8.9 mg/dL (8.4-10.2); Carbon Dioxide 25 mmol/L (22-32); Chloride 107 mmol/L (98-107); Estimated Glomerular Filt Rate > 60 mL/min (>60); Globulin 2.9 g/dL (1.7-4.1); Glucose 64 mg/dL (70-99); HEMOLYSIS < 15 (0-50); Hypochromasia 1+; Microcytosis 2+; Potassium 5.3 mmol/L (3.4-5.1); Sodium 138 mmol/L (137-145); Total Protein 7.3 g/dL (6.3-8.2)
[2025-07-18 09:48] LABS: Ovalocytes 1+; Poikilocytosis 1+
[2025-07-18 11:08] LABS: 585 Gram Check PASS; Patient Weight <110 lb NO; Therapeutic Phleb Consent Chec Consent signed @ reg; Therapeutic Phleb Start Time 1052; Zero Check Sebra Scale PASS
[2025-07-18 11:09] LABS: Amount Collected in g 585 g; Amount Collected mL calc 508 mL; Dizziness N; Postdiastolic BP 69 mmHg; Postsystolic BP 116 mmHg; Swelling N; Therapeutic Phleb Stop Time 1100
== END ==
PROVIDERS: PCP Family Medicine; Referring Provider Family Medicine; Visit Provider Family Medicine
DX: D45 Polycythemia vera (principal)
CPT/HCPCS: 36415; 80053; 85025; 99195

== ENCOUNTER → 2025-08-13 10:34 | Outpatient (CLI) | payer MEDICARE, OTHER, SELFPAY ==
[2025-08-13 11:32] LABS: Alanine Aminotransferase 15 IU/L (<50); Albumin 4.5 g/dL (3.5-5.0); Albumin Globulin Ratio 1.6 (1.0-2.8); Alkaline Phosphatase 91 U/L (38-126); Blood Urea Nitrogen 15 mg/dL (9-20); Calcium 9.3 mg/dL (8.4-10.2); Carbon Dioxide 26 mmol/L (22-32); Chloride 103 mmol/L (98-107); Estimated Glomerular Filt Rate > 60 mL/min (>60); Globulin 2.8 g/dL (1.7-4.1); Glucose 88 mg/dL (70-99); HEMOLYSIS < 15 (0-50); Sodium 137 mmol/L (137-145); Total Protein 7.3 g/dL (6.3-8.2)
[2025-08-13 11:38] LABS: Potassium 5.6 mmol/L (3.4-5.1)
== END ==
PROVIDERS: PCP Family Medicine; Referring Provider Family Medicine; Visit Provider Family Medicine
DX: D45 Polycythemia vera (principal)
CPT/HCPCS: 36415; 80053

== ENCOUNTER → 2025-08-16 08:56 | Outpatient (CLI) | payer MEDICARE, OTHER, SELFPAY ==
[2025-08-16 10:00] LABS: Add Manual Diff / Slide Review NO; Hematocrit 45.2 % (41-53); Hemoglobin 13.8 g/dL (13.5-17.5); Lymphocytes Absolute Auto 2200 /uL (1100-4500); Mean Corpuscular HGB Conc 30.5 % (30-36); Mean Corpuscular Hemoglobin 19.8 PG (26-34); Mean Corpuscular Volume 64.9 fL (80-100); Platelet Count 646 X10^3/uL (150-400)
[2025-08-16 10:19] LABS: Alanine Aminotransferase 14 IU/L (<50); Albumin 4.5 g/dL (3.5-5.0); Albumin Globulin Ratio 1.7 (1.0-2.8); Alkaline Phosphatase 95 U/L (38-126); Blood Urea Nitrogen 17 mg/dL (9-20); Calcium 9.1 mg/dL (8.4-10.2); Carbon Dioxide 25 mmol/L (22-32); Chloride 102 mmol/L (98-107); Estimated Glomerular Filt Rate > 60 mL/min (>60); Globulin 2.7 g/dL (1.7-4.1); Glucose 86 mg/dL (70-99); HEMOLYSIS < 15 (0-50); Sodium 137 mmol/L (137-145); Total Protein 7.2 g/dL (6.3-8.2)
[2025-08-16 10:22] LABS: Potassium 5.6 mmol/L (3.4-5.1)
[2025-08-16 10:24] LABS: Anisocytosis 1+; Microcytosis 2+; Polychromasia 1+
== END ==
PROVIDERS: PCP Family Medicine; Referring Provider Family Medicine; Visit Provider Family Medicine
DX: D45 Polycythemia vera (principal)
CPT/HCPCS: 36415; 80053; 85025

== ENCOUNTER → 2025-10-22 08:37 | Outpatient (CLI) | payer MEDICARE, OTHER, SELFPAY ==
[2025-10-22 10:16] LABS: Alanine Aminotransferase 15 IU/L (<50); Albumin 4.6 g/dL (3.5-5.0); Albumin Globulin Ratio 1.7 (1.0-2.8); Alkaline Phosphatase 89 U/L (38-126); Blood Urea Nitrogen 19 mg/dL (9-20); Calcium 9.5 mg/dL (8.4-10.2); Carbon Dioxide 23 mmol/L (22-32); Chloride 104 mmol/L (98-107); Estimated Glomerular Filt Rate > 60 mL/min (>60); Globulin 2.7 g/dL (1.7-4.1); Glucose 67 mg/dL (70-99); HEMOLYSIS < 15 (0-50); Potassium 5.5 mmol/L (3.4-5.1); Sodium 138 mmol/L (137-145); Total Protein 7.3 g/dL (6.3-8.2)
[2025-10-22 10:29] LABS: Add Manual Diff / Slide Review NO; Hematocrit 46.4 % (41-53); Hemoglobin 14.5 g/dL (13.5-17.5); Lymphocytes Absolute Auto 3300 /uL (1100-4500); Mean Corpuscular HGB Conc 31.2 % (30-36); Mean Corpuscular Hemoglobin 19.8 PG (26-34); Mean Corpuscular Volume 63.6 fL (80-100); Platelet Count 756 X10^3/uL (150-400)
[2025-10-22 10:32] LABS: Anisocytosis 2+; Microcytosis 2+
[2025-10-22 10:33] LABS: Hypochromasia 1+
[2025-10-22 10:34] LABS: Ovalocytes 1+
== END ==
PROVIDERS: PCP Family Medicine; Referring Provider Family Medicine; Visit Provider Family Medicine
DX: D45 Polycythemia vera (principal)
CPT/HCPCS: 36415; 80053; 85025